=== PATIENT | male | born 1965 | race Two or more races ===

== ENCOUNTER 2024-07-21 17:27 | Inpatient (IN) | payer MEDICARE, MEDICAID, SELFPAY ==
[2024-07-21 17:36] VITALS: BP 118/72; PULSE 94; RESP 18; TEMP 37.2; O2SAT 95
--- NOTE | 2024-07-21 18:01 | XR_ITS ---
Examination: Foot, right, 3 views Technique: AP, oblique, lateral views foot, 3 views Date and time of exam: Comparison June 13, 2009 INDICATIONS: Right foot discoloration redness and pain this week FINDINGS: Periosteal new bone along the entire shaft of the fifth metatarsal Air in the soft tissue and soft tissue swelling about the fifth metatarsophalangeal joint Erosion on the oblique view distal fifth metacarpal, also suspicious for erosion base proximal phalanx fifth digit Amputation second digit No fracture IMPRESSION: Osteomyelitis fifth metatarsal, suspicious for early osteomyelitis base proximal phalanx of fifth digit Consider elective MRI foot without contrast follow-up
--- NOTE | 2024-07-21 18:02 | PD.EDRME ---
Rapid Medical Screening Exam RME Arrival date/time: 07/21/24 17:27 59-year-old male presents to the emergency department today for complaint of diabetic foot ulcer patient reports swelling and infection ongoing for the last few days Chief Complaint: Skin/Abscess/Foreign Body Vital signs: Vital Signs Temperature 98.9 F 07/21/24 17:36 Pulse Rate 94 07/21/24 17:36 Respiratory Rate 18 07/21/24 17:36 Blood Pressure 118/72 07/21/24 17:36 Pulse Oximetry (%) 95 07/21/24 17:36 Oxygen Delivery Method Room Air 07/21/24 17:36
[2024-07-21 18:37] LABS: Basophils % (Auto) 0 % (0-2.5); Eosinophils # (Auto) 0.1 Thou/mm3 (0.0-0.5); Eosinophils % (Auto) 1 % (0-10); Hematocrit 29.9 % (41.0-53.0); Immature Granulocytes % (Auto) 0 % (0-0); Immature Granulocytes Auto 0.04 Thou/mm3 (0.00-0.00); Lactate (Lactic Acid) 1.2 mMol/L (0.4-2.0); Lymphocytes # (Auto) 1.1 Thou/mm3 (1.0-4.8); Lymphocytes % (Auto) 9 % (10-50); Mean Corpuscular HGB Conc 36.8 g/dl (31.0-37.0); Mean Corpuscular Hemoglobin 33.4 pg (25.0-35.0); Mean Corpuscular Volume 91 fL (80-100); Monocytes # (Auto) 1.2 Thou/mm3 (0.0-0.8); Monocytes % (Auto) 9 % (0-12); Neutrophils # (Auto) 10.7 Thou/mm3 (1.8-7.7); Neutrophils % (Auto) 81 % (37-80); Nucleated Red Blood Cell % 0 /100 WBC (0); Platelet Count 201 Thou/mm3 (140-440); RDW Standard Deviation 38.5 fL (35.1-43.9); Red Blood Count 3.29 Miln/mm3 (4.50-5.90); White Blood Count 13.3 Thou/mm3 (3.8-10.6)
[2024-07-21 18:48] LABS: Glucose Estimated Average 134 mg/dL (80-131); Hemoglobin A1C 6.3 % Hgb (4.8-6.0)
[2024-07-21 18:56] LABS: Sed Rate (ESR) 62 mm/hr (0-20)
[2024-07-21 18:57] LABS: INR 1.1 (0.9-1.3); Partial Thromboplastin Time 30.8 Seconds (22.0-36.0); Prothrombin Time 11.5 Seconds (9.0-12.2)
[2024-07-21 19:11] LABS: Alanine Aminotransferase 17 U/L (10-49); Albumin, Serum 4.2 gm/dL (3.5-5.0); Albumin/Globulin Ratio 1.4 (1.2-2.2); Alkaline Phosphatase 87 U/L (46-116); Anion Gap 9 (7-16); BUN/Creatinine Ratio 17 Ratio (12-20); Blood Urea Nitrogen 31 mg/dL (9-23); C-Reactive Protein 20.2 mg/dL (0.0-0.9); Calcium 9.5 mg/dL (8.3-10.6); Calcium (Corrected) 9.5 mg/dL (8.5-10.1); Carbon Dioxide 25.2 mMol/L (20.0-31.0); Chloride 104 mMol/L (98-107); Creatinine (Component) 1.8 mg/dL (0.6-1.3); Glucose 318 mg/dL (74-106); Osmolality,Calculated 294 (275-295); Potassium 5.1 mMol/L (3.4-5.1); Sodium 138 mMol/L (136-145); Total Protein 7.2 gm/dL (5.7-8.2); eGFR 43 See Note
--- NOTE | 2024-07-21 20:30 | PD.EDSKIN ---
ED Skin Abcess FB-RME/HPI General Chief complaint: Skin/Abscess/Foreign Body Stated complaint: FEVER, PAIN/SWELLING/DISCOLORATION TO RIGHT FOOT Time Seen by Provider: 07/21/24 18:34 Arrival date/time: 07/21/24 17:27 This is a 59-year-old male that comes in with complaints of fever, pain, swelling, discoloration to the right outer foot next to the fifth digit. Patient states that the wound started approximately 3 days ago was very small and its progressed every day a lot more. Patient sees a slumber room attendant at the [facility] and they told him to come to the emergency room. RME / HPI RME / HPI narrative: 07/21/24 17:27 59-year-old male presents to the emergency department today for complaint of diabetic foot ulcer patient reports swelling and infection ongoing for the last few days Related Data Home Medications ?Medication ?Instructions ?Recorded ?Confirmed lisinopril 10 mg tablet 10 mg PO DAILY 07/21/24 07/21/24 Previous Rx's ?Medication ?Instructions ?Recorded metformin 1,000 mg tablet 1,000 mg PO BID #60 tabs 07/24/24 Allergies Allergy/AdvReac Type Severity Reaction Status Date / Time No Known Allergies Allergy Verified 05/19/23 01:31 Review of Systems Review of Systems Systems Reviewed: All systems reviewed, normal except as documented Past Medical History Surgical History OTHER SURGICAL HX: Right second toe amputation Social History SMOKING STATUS: Former smoker SUBSTANCE USE: does not use ALCOHOL: Former ED Exam Narrative Physical exam: VITAL SIGNS: Reviewed. GENERAL APPEARANCE: Alert and interactive, follows commands, no acute distress, HEAD AND FACE: Non-traumatic. ENT: PERRL, conjuctiva pink and clear, eyelid no trauma, Mucous membrane moist. NECK: Supple, nontender, no nuchal rigidity. CHEST: No tenderness, no crepitus, no paradoxical movement, no retractions. LUNGS: Clear, well ventilated, symmetric, no rales, no wheezing, no rhonchi, no stridor, good breath sounds bilaterally. HEART: Regular rate, regular rhythm, no murmur, no gallops. ABDOMEN: Soft, nondistended, no guarding, nontender NEUROLOGICAL: Gross motor function intact sensory function intact, Appropriate for age. MUSCULOSKELETAL: low back nontender, full range of motion. EXTREMITIES:discoloration to the right outer foot next to the fifth digit Distal neurovascular status intact bilateral foot SKIN: Color pink, dry, no rash, no lacerations, no abrasions, no contusions. Course Quality Measures none Orders Category Date Time Status Patient Condition Routine Admission 07/21/24 21:[address] in Observation Status Routine Admission 07/21/24 21:19 Active Bedside Blood Glucose ACHS Care 07/22/24 11:14 Completed Bedside Blood Glucose Q6HR Care 07/21/24 21:21 Completed Bedside COVID-19 Antigen Test NOW Care 07/21/24 22:06 Completed COVID-19 Screening Questionnaire NOW Care 07/21/24 21:17 Completed Decision to Admit X1 Care 07/21/24 21:17 Completed Miscellaneous Nursing Order NOW Care 07/21/24 21:58 Completed NPO after Midnight ONCE Care 07/21/24 21:23 Completed Notify provider NEEDED Care 07/21/24 21:19 Completed Nurse Swallow Screen X1 Care 07/21/24 21:58 Completed Sequential Compression Device QSHIFT Care 07/21/24 21:21 Completed Wound Care [Wound Care] BID Care 07/22/24 09:33 Completed Consult to General Surgery Routine Cons 07/21/24 21:34 Ordered Consult to Infectious Diseases Routine Cons 07/22/24 10:21 Ordered Diabetic [Diet Carbohydrate Consistent] Diet 07/22/24 Lunch Active Diet NPO after Midnight Diet 07/22/24 00:01 Completed XR foot comp RT min 3V Stat Exams 07/21/24 18:01 Completed A1C [Glycohemoglobin w (eAG)] Stat Lab 07/21/24 18:15 Completed Blood Culture (Lab) Stat Lab 07/21/24 18:15 Completed C-Reactive Protein Routine Lab 07/22/24 05:40 Completed CBC AM DRAW Lab 07/22/24 05:40 Completed CBC AM DRAW Lab 07/23/24 04:41 Completed CBC AM DRAW Lab 07/24/24 04:23 Completed CBC Stat Lab 07/21/24 18:15 Completed CMP [Comprehensive Metabolic Panel] Stat Lab 07/21/24 18:15 Completed CRP [C-Reactive Protein] Stat Lab 07/21/24 18:15 Completed Comprehensive Metabolic Panel AM DRAW Lab 07/22/24 05:40 Completed Comprehensive Metabolic Panel AM DRAW Lab 07/23/24 04:41 Completed Comprehensive Metabolic Panel AM DRAW Lab 07/24/24 04:23 Completed ESR [Sed Rate (ESR)] AM DRAW Lab 07/23/24 04:41 Completed ESR [Sed Rate (ESR)] Stat Lab 07/21/24 18:15 Completed Lactic Acid [Lactate (Lactic Acid)] Routine Lab 07/22/24 05:40 Completed Lactic Acid [Lactate (Lactic Acid)] Stat Lab 07/21/24 18:15 Completed Magnesium AM DRAW Lab 07/22/24 05:40 Completed Magnesium AM DRAW Lab 07/23/24 04:41 Completed Magnesium AM DRAW Lab 07/24/24 04:23 Completed PT [Prothrombin Time with INR] Stat Lab 07/21/24 18:15 Completed PTT [Partial Thromboplastin Time] Stat Lab 07/21/24 18:15 Completed Potassium Routine Lab 07/21/24 21:41 Completed Procalcitonin Stat Lab 07/21/24 18:15 Completed Sed Rate (ESR) Routine Lab 07/22/24 05:40 Completed Acetaminophen Tab [Tylenol Tab] Med 07/21/24 21:21 Discontinued 650 mg PO Q6H PRN Acetaminophen Tab [Tylenol Tab] Med 07/22/24 11:24 Discontinued 650 mg PO Q6H PRN Ascorbic Acid [Vitamin C] Med 07/22/24 09:45 Discontinued 500 mg PO BID Cefepime Inj [Maxipime Inj] 2 gm Med 07/22/24 09:00 Discontinued SODIUM CHLORIDE 0.9% (Popper) [Ns 0.9% (P)] 50 ml IV Q12HR Cefepime Inj [Maxipime Inj] 2 gm Med 07/21/24 21:34 Discontinued SODIUM CHLORIDE 0.9% (Popper) [Ns 0.9% (P)] 50 ml IV Q8HR Cefepime Inj [Maxipime Inj] 2 gm Med 07/21/24 21:45 Discontinued SODIUM CHLORIDE 0.9% (Popper) [Ns 0.9% (P)] 50 ml IV X1 Dextrose 50% Syr [D50w Syringe Abboject] Med 07/21/24 21:21 Discontinued 25 ml IV Q15MIN PRN Dextrose 50% Syr [D50w Syringe Abboject] Med 07/22/24 11:14 Discontinued 25 ml IV Q15MIN PRN Dextrose 50% Syr [D50w Syringe Abboject] Med 07/21/24 21:21 Discontinued 50 ml IV Q15MIN PRN Dextrose 50% Syr [D50w Syringe Abboject] Med 07/22/24 11:14 Discontinued 50 ml IV Q15MIN PRN Doxycycline Inj [Vibramycin Inj] 100 mg Med 07/22/24 21:00 Discontinued Sodium Chloride 0.9% (Pop) [NS 0.9% mini bag] 100 ml IV BID Glucagon Inj Med 07/21/24 21:21 Discontinued 1 mg IM Q15MIN PRN Glucagon Inj Med 07/22/24 11:14 Discontinued 1 mg IM Q15MIN PRN HYDROcodone*/APAP 5/325 [[place] 5/325] Med 07/21/24 21:21 Discontinued 1 tab PO Q4HR PRN INSULIN LISPRO (AdmeLOG) [HumaLOG] Med 07/22/24 11:30 Discontinued See Protocol SC ACHS INSULIN LISPRO (AdmeLOG) [HumaLOG] Med 07/21/24 21:30 Discontinued See Protocol SC Q6H Lisinopril [Prinivil] Med 07/22/24 11:15 Discontinued 10 mg PO DAILY Magnesium Sulfate 4 GM Ivpb [Magnesium Sulfate Ivpb] Med 07/22/24 07:52 Discontinued 4 gm in 50 ml IV X1 Ondansetron Inj [Zofran Inj] Med 07/21/24 21:21 Discontinued 4 mg IVP Q6H PRN Pharmacy to Consult Patient Med 07/21/24 21:34 Discontinued 1 each XX PRN PRN Piper/Tazo 3.375 gm Premix [Zosyn] Med 07/21/24 20:57 Discontinued 3.375 gm in 50 ml IV X1 Piper/Tazo Inj [Zosyn Inj] 4.5 gm Med 07/22/24 06:00 Discontinued Sodium Chloride 0.9% (Pop) [NS 0.9% mini bag] 100 ml IV Q8HR Sod Hypochlorite 02/17 Str [Dakin's 02/17 Str] Med 07/23/24 09:00 Discontinued 473 ml IRRIG QDAY Sodium Chloride 0.9% 1000 ml [Ns] 1,000 ml Med 07/21/24 20:57 Discontinued IV 999 mls/hr TET,DIP/PERT AC (Adult)-Tdap [Boostrix Adult (Tdap) Med 07/22/24 11:14 Discontinued Vacc] 0.5 ml IMI .ONCE ONE Vancomycin Inj 1,000 mg Med 07/21/24 20:57 Discontinued Sodium Chloride 0.9% 250 ml [Ns] 250 ml IV X1 Vancomycin Pharmacy to Dose Med 07/22/24 09:00 Discontinued 1 each IV QDAY Vancomycin/Ns 750 mg Ivpb Med 07/22/24 10:00 Discontinued 750 mg in 150 ml IV Q12H Zinc Sulfate Med 07/22/24 09:45 Discontinued 220 mg PO QDAY Code Status Routine Oth 07/21/24 21:19 Completed Oxygen Delivery PRN RT 07/21/24 21:19 Completed Vital Signs Vital signs: Vital Signs Temperature 98.9 F 07/21/24 17:36 Pulse Rate 94 07/21/24 17:36 Respiratory Rate 18 07/21/24 17:36 Blood Pressure 118/72 07/21/24 17:36 Pulse Oximetry (%) 95 07/21/24 17:36 Oxygen Delivery Method Room Air 07/21/24 17:36 Skin / Abscess / Foreign Body MDM Narrative MDM Narrative:: foot x ray: FINDINGS: Periosteal new bone along the entire shaft of the fifth metatarsal Air in the soft tissue and soft tissue swelling about the fifth metatarsophalangeal joint Erosion on the oblique view distal fifth metacarpal, also suspicious for erosion base proximal phalanx fifth digit Amputation second digit No fracture IMPRESSION: Osteomyelitis fifth metatarsal, suspicious for early osteomyelitis base proximal phalanx of fifth digit Consider elective MRI foot without contrast follow-up Labs reviewed white count is 13.3 hemoglobin and hematocrit are 11 and 29.9, platelet count is 209, neutrophils 81. ESR of 62. PT INR unremarkable. BMP shows a BUN of 31 and a creatinine of 1.8. CRP is 20.2. Spoke to hospitalist team Dr. Ortiz who agreed to admit patient. Patient was given Zosyn and vancomycin. Patient also given a liter of fluid. Patient data External records reviewed:: [facility] previous records Clinical information provided by:: patient Social determinants that could affect healthcare access:: none Patient has the following chronic illnesses:: See HPI How is presenting disease/condition affected by chronic disease/condition?: exacerbated by Evaluation data The following diagnostics were reviewed and interpreted by me:: lab results and radiology exam(s) Lab and/or radiology exams considered but not ordered:: None Interpretation Summary: See note Medications / Prescriptions Medications or Prescriptions considered but not ordered:: None Medication administrations:: Medication Administration History Discontinued Medications Acetaminophen (Acetaminophen 325 Mg Tablet) 650 mg PO Q6H PRN PRN Reason: pain and Fever >100.4 Stop: 08/20/24 21:20 Last Admin: 07/21/24 23:59 Dose: 650 mg Documented By: FLAVIA Acetaminophen (Acetaminophen 325 Mg Tablet) 650 mg PO Q6H PRN PRN Reason: pain and Fever >100.4 Stop: 08/20/24 21:20 Hydrocodone Bitart/Acetaminophen (Hydrocodone/Apap 5/325 Tablet) 1 tab PO Q4HR PRN PRN Reason: PAIN SCALE 4-6 (Moderate Stop: 07/26/24 21:20 Last Admin: 07/23/24 21:06 Dose: 1 tab Documented By: Admin: 07/23/24 08:26 Dose: 1 tab Documented By: Admin: 07/22/24 14:15 Dose: 1 tab Documented By: Admin: 07/22/24 08:30 Dose: 1 tab Documented By: Ascorbic Acid (Ascorbic Acid 250 Mg Tablet) 500 mg PO BID ANGELA Stop: 08/21/24 09:44 Last Admin: 07/25/24 09:14 Dose: 500 mg Documented By: Admin: 07/24/24 21:22 Dose: 500 mg Documented By: Admin: 07/24/24 09:17 Dose: 500 mg Documented By: Admin: 07/23/24 20:45 Dose: 500 mg Documented By: Admin: 07/23/24 08:16 Dose: 500 mg Documented By: Admin: 07/22/24 21:22 Dose: 500 mg Documented By: Admin: 07/22/24 09:49 Dose: 500 mg Documented By: Dextrose (Dextrose 50%-Water Inj 50 Ml Syringe) 25 ml IV Q15MIN PRN PRN Reason: BG 50-70 responsive npo pt Stop: 08/20/24 21:20 Dextrose (Dextrose 50%-Water Inj 50 Ml Syringe) 50 ml IV Q15MIN PRN PRN Reason: BG <50 OR BG <70 & pt unresponsive Stop: 08/20/24 21:20 Dextrose (Dextrose 50%-Water Inj 50 Ml Syringe) 25 ml IV Q15MIN PRN PRN Reason: BG 50-70 responsive npo pt Stop: 08/21/24 11:13 Dextrose (Dextrose 50%-Water Inj 50 Ml Syringe) 50 ml IV Q15MIN PRN PRN Reason: BG <50 OR BG <70 & pt unresponsive Stop: 08/21/24 11:13 Diphtheria/Tetanus/Acell Pertussis (Diphth,Pertuss(Acell),Tet Vac 0.5 Ml Syr- Adult) 0.5 ml IMi .ONCE ONE Stop: 07/22/24 11:15 Last Admin: 07/22/24 13:55 Dose: 0.5 ml Documented By: Doxycycline Hyclate (Doxycycline 100 Mg Tablet) 100 mg PO BID ANGELA Stop: 07/30/24 20:59 Last Admin: 07/25/24 09:15 Dose: 100 mg Documented By: Admin: 07/24/24 21:22 Dose: 100 mg Documented By: Admin: 07/24/24 13:12 Dose: 100 mg Documented By: Admin: 07/23/24 20:45 Dose: 100 mg Documented By: PIPPA Glucagon (Glucagon Inj 1 Mg Vial) 1 mg IM Q15MIN PRN PRN Reason: BG <70, and no IV access Glucagon (Glucagon Inj 1 Mg Vial) 1 mg IM Q15MIN PRN PRN Reason: BG <70, and no IV access Heparin Sodium (Beef Lung) (Heparin Sod Lock Syr 100 Unit/Ml) Confirm Administered Dose 500 unit .ROUTE .STK-MED ONE Stop: 07/24/24 12:14 Last Admin: 07/24/24 12:25 Dose: Not Given Documented By: EG Non-Admin Reason: Duplicate Medication on eMAR Heparin Sodium (Beef Lung) (Heparin Sod Lock Syr 100 Unit/Ml) 500 unit IV X1 ONE Stop: 07/24/24 12:31 Last Admin: 07/24/24 12:30 Dose: 500 unit Documented By: KATHY Comments: to sterile field Heparin Sodium (Porcine) (Heparin Sod Inj 5000 Unit/Ml Vial) 5,000 unit SC Q8HR ANGELA Stop: 08/05/24 13:59 Last Admin: 07/25/24 05:17 Dose: 5,000 unit Documented By: FLAVIA Co-signed By: ROSAMARIA Admin: 07/24/24 21:19 Dose: 5,000 unit Documented By: FLAVIA Co-signed By: RAY Admin: 07/24/24 15:01 Dose: 5,000 unit Documented By: OLIVIA Co-signed By: CB Admin: 07/24/24 05:34 Dose: 5,000 unit Documented By: PIPPA Co-signed By: JOHANNA Admin: 07/23/24 21:07 Dose: 5,000 unit Documented By: HV Co-signed By: FF Admin: 07/23/24 15:04 Dose: 5,000 unit Documented By: OLIVIA Co-signed By: BRET Admin: 07/23/24 05:24 Dose: 5,000 unit Documented By: FLAVIA Co-signed By: CTF Admin: 07/22/24 21:27 Dose: 5,000 unit Documented By: FLAVIA Co-signed By: AAA Admin: 07/22/24 13:43 Dose: 5,000 unit Documented By: Co-signed By: JANET Vancomycin HCl 1,000 mg/ (Sodium Chloride) 250 mls @ 150 mls/hr IV X1 ONE Stop: 07/21/24 22:36 Last Admin: 07/21/24 22:39 Dose: 150 mls/hr Documented By: CCT Piperacillin/Tazobactam/Dextrose (Zosyn) 3.375 gm in 50 mls @ 100 mls/hr IV X1 ONE Stop: 07/21/24 21:26 Last Infusion: 07/21/24 21:45 Dose: Infused Documented By: Admin: 07/21/24 21:10 Dose: 100 mls/hr Documented By: CCT Sodium Chloride (Ns) 1,000 mls @ 999 mls/hr IV .Q1H1M ONE Stop: 07/21/24 21:57 Last Infusion: 07/21/24 22:10 Dose: Infused Documented By: Admin: 07/21/24 21:10 Dose: 999 mls/hr Documented By: CCT Piperacillin Sod/Tazobactam (Sod 4.5 gm/ Sodium Chloride) 100 mls @ 200 mls/hr IV Q8HR ANGELA Stop: 07/29/24 05:59 Cefepime HCl 2 gm/ Sodium (Chloride) 50 mls @ 100 mls/hr IV Q8HR ANGELA Stop: 07/28/24 21:33 Last Admin: 07/21/24 22:48 Dose: Not Given Documented By: CCT Non-Admin Reason: Duplicate Medication on eMAR Admin: 07/21/24 22:48 Dose: Not Given Documented By: CCT Non-Admin Reason: Cancelled by Provider Cefepime HCl 2 gm/ Sodium (Chloride) 50 mls @ 100 mls/hr IV X1 ONE Stop: 07/21/24 22:14 Last Infusion: 07/21/24 22:35 Dose: Infused Documented By: Admin: 07/21/24 22:03 Dose: 100 mls/hr Documented By: PHAM Cefepime HCl 2 gm/ Sodium (Chloride) 50 mls @ 100 mls/hr IV Q12HR ANGELA Stop: 07/29/24 08:59 Last Admin: 07/23/24 08:16 Dose: 100 mls/hr Documented By: Infusion: 07/22/24 21:52 Dose: Infused Documented By: Admin: 07/22/24 21:22 Dose: 100 mls/hr Documented By: Infusion: 07/22/24 09:47 Dose: Infused Documented By: Admin: 07/22/24 09:17 Dose: 100 mls/hr Documented By: Magnesium Sulfate (Magnesium Sulfate Ivpb) 4 gm in 50 mls @ 12.5 mls/hr IV X1 ONE Stop: 07/22/24 11:51 Last Admin: 07/22/24 08:30 Dose: 12.5 mls/hr Documented By: MR Vancomycin/Sodium Chloride (Vancomycin/Ns 750 Mg Ivpb) 750 mg in 150 mls @ 120 mls/hr IV Q12H ANGELA; Protocol Stop: 07/29/24 09:59 Last Admin: 07/22/24 09:49 Dose: 120 mls/hr Documented By: MR Doxycycline Hyclate 100 mg/ (Sodium Chloride) 100 mls @ 100 mls/hr IV BID ANGELA Stop: 07/29/24 20:59 Last Admin: 07/23/24 10:43 Dose: 100 mls/hr Documented By: Infusion: 07/22/24 22:21 Dose: Infused Documented By: Admin: 07/22/24 21:21 Dose: 100 mls/hr Documented By: FLAVIA Sodium Chloride (Ns) 1,000 mls @ 80 mls/hr IV .[id number] ANGELA Stop: 07/23/24 01:59 Last Admin: 07/22/24 13:42 Dose: 80 mls/hr Documented By: Sodium Chloride (Ns) 1,000 mls @ 125 mls/hr IV .Q8H ANGELA Stop: 08/22/24 07:29 Last Admin: 07/24/24 05:33 Dose: 125 mls/hr Documented By: Infusion: 07/24/24 04:42 Dose: Infused Documented By: Admin: 07/23/24 20:42 Dose: 125 mls/hr Documented By: Infusion: 07/23/24 18:28 Dose: Infused Documented By: Admin: 07/23/24 08:19 Dose: 125 mls/hr Documented By: OLIVIA Ceftriaxone Sodium 2 gm/ (Sodium Chloride) 50 mls @ 100 mls/hr IV QDAY ANGELA Stop: 07/30/24 12:51 Last Admin: 07/24/24 09:17 Dose: 100 mls/hr Documented By: Infusion: 07/23/24 14:11 Dose: Infused Documented By: Admin: 07/23/24 13:41 Dose: 100 mls/hr Documented By: OLIVIA Ceftriaxone Sodium/Dextrose (Rocephin/D5w 2gm) 2 gm in 50 mls @ 100 mls/hr IV QDAY ANGELA Stop: 07/30/24 12:51 Last Admin: 07/25/24 09:13 Dose: 100 mls/hr Documented By: MARQUES Magnesium Sulfate (Magnesium Sulfate Ivpb) 4 gm in 50 mls @ 12.5 mls/hr IV X1 ONE Stop: 07/24/24 17:55 Last Admin: 07/24/24 15:01 Dose: 12.5 mls/hr Documented By: OLIVIA Magnesium Sulfate (Magnesium Sulfate Ivpb) 2 gm in 50 mls @ 25 mls/hr IV X1 ONE Stop: 07/24/24 19:55 Last Admin: 07/24/24 19:17 Dose: 25 mls/hr Documented By: FLAVIA Insulin Glargine (Insulin Glargine (Lantus) 5 Unit/0.05 Ml (Per 5 Units)) 8 unit SC [facility] Stop: 08/22/24 20:59 Insulin Glargine (Insulin Glargine (Lantus) 5 Unit/0.05 Ml (Per 5 Units)) 4 unit SC [facility] Stop: 08/22/24 20:59 Last Admin: 07/24/24 21:16 Dose: 4 unit Documented By: FLAVIA Co-signed By: RAY Admin: 07/23/24 21:35 Dose: 4 unit Documented By: PIPPA Co-signed By: FF Insulin Human Lispro (Insulin Lispro (Admelog) 1 Unit/0.01 Ml Unit) 0 unit SC Q6H ANGELA; Protocol Stop: 08/20/24 21:29 Last Admin: 07/22/24 09:12 Dose: Not Given Documented By: Non-Admin Reason: NPO Admin: 07/22/24 03:49 Dose: Not Given Documented By: FLAVIA Non-Admin Reason: NPO Admin: 07/21/24 22:27 Dose: 3 unit Documented By: CCT Co-signed By: AC Insulin Human Lispro (Insulin Lispro (Admelog) 1 Unit/0.01 Ml Unit) 0 unit SC ACHS ANGELA; Protocol Stop: 08/21/24 11:29 Last Admin: 07/25/24 11:53 Dose: 4 unit Documented By: MARQUES Co-signed By: BRET Admin: 07/25/24 07:56 Dose: 3 unit Documented By: MARQUES Co-signed By: BRET Admin: 07/24/24 21:16 Dose: 3 unit Documented By: FLAVIA Co-signed By: RAY Admin: 07/24/24 18:14 Dose: 3 unit Documented By: OLIVIA Co-signed By: YM Admin: 07/24/24 13:12 Dose: 3 unit Documented By: LH Co-signed By: YM Admin: 07/24/24 09:17 Dose: 2 unit Documented By: LH Co-signed By: JRR Admin: 07/23/24 22:06 Dose: 4 unit Documented By: PIPPA Co-signed By: FF Admin: 07/23/24 18:09 Dose: 2 unit Documented By: LH Co-signed By: CB Admin: 07/23/24 12:52 Dose: 2 unit Documented By: OLIVIA Co-signed By: BRET Admin: 07/23/24 08:17 Dose: 2 unit Documented By: OLIVIA Co-signed By: DEL Admin: 07/22/24 21:26 Dose: 2 unit Documented By: FLAVIA Co-signed By: KENNEY Admin: 07/22/24 17:24 Dose: 2 unit Documented By: Co-signed By: MARQUES(2) Admin: 07/22/24 11:31 Dose: 2 unit Documented By: Co-signed By: CHEEM1 Insulin Human Lispro (Insulin Lispro (Admelog) 1 Unit/0.01 Ml Unit) 2 unit SC X1 ONE Stop: 07/24/24 00:18 Last Admin: 07/24/24 00:35 Dose: 2 unit Documented By: PIPPA Co-signed By: JOHANNA Lidocaine HCl (Lidocaine Inj Pf 1% 30 Ml Vial) Confirm Administered Dose 30 ml .ROUTE .STK-MED ONE Stop: 07/24/24 12:14 Last Admin: 07/24/24 12:25 Dose: Not Given Documented By: KATHY Non-Admin Reason: Duplicate Medication on eMAR Lidocaine HCl (Lidocaine Inj Pf 1% 30 Ml Vial) 3 ml INFL X1 ONE Stop: 07/24/24 12:31 Last Admin: 07/24/24 12:31 Dose: 3 ml Documented By: KATHY Comments: administered by dr. jay to sterile field Lisinopril (Lisinopril 2.5 Mg Tablet) 10 mg PO DAILY [facility] Stop: 08/21/24 11:14 Last Admin: 07/25/24 09:14 Dose: 10 mg Documented By: Admin: 07/24/24 09:16 Dose: 10 mg Documented By: Admin: 07/23/24 08:16 Dose: 10 mg Documented By: Admin: 07/22/24 11:32 Dose: 10 mg Documented By: Ondansetron HCl (Ondansetron Inj 2 Mg/Ml Inj 2 Ml) 4 mg IVP Q6H PRN; Protocol PRN Reason: NAUSEA OR VOMITING Stop: 08/20/24 21:20 Last Admin: 07/22/24 08:30 Dose: 4 mg Documented By: Pharmacy Consult (Vancomycin Pharmacy To Dose 1 Each Each) 1 each IV QDAY [facility] Stop: 08/21/24 08:59 Pharmacy Consult (Pharmacy To Consult Patient) 1 each XX PRN PRN PRN Reason: CONSULT Stop: 08/20/24 21:33 Sodium Hypochlorite (Sod Hypochlorite 1/4 Str 473 Ml Btl) 473 ml IRRIG QDAY [facility] Stop: 08/22/24 08:59 Last Admin: 07/23/24 12:53 Dose: 1 applicatio Documented By: OLIVIA Sodium Hypochlorite (Sod Hypochlorite 1/4 Str 473 Ml Btl) 473 ml IRRIG BID [facility] Stop: 08/22/24 15:14 Sodium Hypochlorite (Sod Hypochlorite / Str 473 Ml Btl) 473 ml TOP BID ANGELA Stop: 08/22/24 20:59 Last Admin: 07/25/24 09:15 Dose: 1 applicatio Documented By: Admin: 07/24/24 21:23 Dose: 1 applicatio Documented By: Admin: 07/24/24 13:11 Dose: 1 applicatio Documented By: Admin: 07/23/24 20:45 Dose: 1 applicatio Documented By: PIPPA Zinc Sulfate (Zinc Sulfate 220 Mg Capsule) 220 mg PO QDAY ANGELA Stop: 08/21/24 09:44 Last Admin: 07/25/24 09:14 Dose: 220 mg Documented By: Admin: 07/24/24 09:17 Dose: 220 mg Documented By: Admin: 07/23/24 08:16 Dose: 220 mg Documented By: Admin: 07/22/24 09:49 Dose: 220 mg Documented By: MR Gomez MCKINNEY Consultations Consultation(s) initiated? (list below): No Diagnosis Skin/Abscess Differential Diagnosis: abscess of skin or subcutaneous tissue, cellulitis and other (Osteomyelitis) Most likely diagnosis given after review of the tests above:: Osteomyelitis cellulitis Admission Indicated Admission indicated?: indicated Admission Request Was there a request for admission?: Yes Admission Attestation Admission request attestation: Discussed case with [] from Hospitalist service regarding admission. Discussed patients ED course, exam findings, labs, and radiology results. The Hospitalist [agrees,declines] to accept the patient for admission. Disposition Plan Disposition Plan: Admit Discharge Plan Plan Patient Disposition: Admit Acute Care w/in Hospital Patient condition on transfer: Stable Problem List Clinical Impression: Osteomyelitis, Cellulitis PA/ANGEL Supervising Physician JUSTIN/ANGEL Supervising Physician: bartolo
[2024-07-21 20:49] VITALS: BP 150/95; PULSE 100; RESP 18; TEMP 37.6; O2SAT 96
[2024-07-21] MEDS: SODIUM CHLORIDE 0.9% 1000 ML 1,000 ML 999 ML IV (21:10)
[2024-07-21] MEDS: PIPER/TAZO 3.375 GM PREMIX 3.375 GM/50 ML BAG IV (21:10)
--- NOTE | 2024-07-21 21:26 | PD.RESHP ---
Documentation for date of: 07/21/24 HPI History of Present Illness Chief complaint: R foot pain and swelling History of present illness: 59-year-old male with past medical history of DM2 and hypertension was admitted to the hospital on 07/21/2024 after come to the ED with complaints of right foot swelling accompanied with subjective fevers and chills. Patient stated that the symptoms started around 2 or 3 days ago. 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 Patient states that he did not have any trauma to the foot or nothing punctured his foot. He does state that he has very dry skin and that likely from his foot were that he could have had a rupture in his skin and then progressed to swelling erythema at the edges and then started having skin discoloration around 4 to 5 cm in diameter. He stated that he also has chills and some fevers at home, but otherwise he had no other complaints at this time. He states that it is tender to touch. He normally walks with a cane. He did have amputation of the second toe on that same foot and around 2 years ago he also had debridement of the lesion on his left foot that was also necrotic likely in the setting of another similar lesion as 2 days. Otherwise he has no new complaints and he did not go see a primary care physician as an outpatient. ED course: Initially came in afebrile and normotensive. Initial labs were relevant for leukocytosis, elevated ESR at 62, GINNY, hyperglycemia, and elevated CRP at 20.2. Initial imaging included foot x-ray which showed suspicion for early osteomyelitis of the fifth digit. PMH: As above Social Hx: Denies any current smoking, drugs, or alcohol Surgical Hx: Right second toe amputation and left foot lesion debridement Allergies: NKDA Medications: Metformin Review of Systems Review of Systems Narrative Review of Systems: Constitutional: Denies sweats, Denies weight loss/gain, Admits fever, Admits chills. HEENT: Denies hearing loss, Denies ear pain, Denies postnasal drip, Denies double vision, Denies blurry vision. Respiratory: Denies shortness of breath, Denies cough, Denies wheezing. Cardiovascular: Denies chest pain, Denies palpitations, Denies sudden loss of consciousness. GI: Denies blood in stool, Denies constipation, Denies abdominal pain, Denies difficulty swallowing, Denies nausea or vomit. : Denies urinary incontinence, Denies pain while urinating, Denies increased urinary frequency. MSK: Admits joint pain, admits joint swelling, Denies numbness. Skin: Denies rash, Denies itching, Denies easy bruising. Neuro: Denies headaches, Denies dizziness, Denies seizures. Past Medical History Past Medical History Comments PMH COMMENT: PMH: DM2 and HTN Social Hx: Denies any current smoking, drugs, or alcohol Surgical Hx: Right second toe amputation and left foot lesion debridement Allergies: NKDA Medications: Metformin Exam Vital Signs Temp Pulse Resp BP Pulse Ox O2 Del Method 99.7 F 100 18 150/95 H 96 Room Air 07/21/24 20:49 07/21/24 20:49 07/21/24 20:49 07/21/24 20:49 07/21/24 20:49 07/21/24 20:49 Narrative Exam General: A/O x3, no acute distress Eyes: PERRL, EOMI. Anicteric, vision grossly intact. Ears: No ear pain, no ear discharge, Hearing grossly intact. Nose: No nasal discharge. Mouth/Throat: Moist mucous membranes, no redness, no lesions. Neck: Neck supple, non-tender, no cervical lymphadenopathy. Lungs: Clear MICKY to auscultation and percussion, No accessory muscle use. Cardio: Normal S1/S2, regular rhythm, no murmurs, no JVD Abdomen: Soft, non-tender, no palpable masses, peristalsis present, no guarding or rebound. Extremities: Symmetrical, no significant deformities, no peripheral edema , non-tender, peripheral pulses presents. Right foot lateral lesion besides the fifth toe with necrotic changes and is around 4 to 5 cm in diameter, but no discharge seen. Erythematous and tender to palpation Skin: No rashes, no lesions, warm to touch. Neuro: No focal neurological deficits. motor and sensory intact Psych: Cooperative, appropriate mood and effect. Results: Labs 07/22/24 05:40 07/21/24 21:41 Labs: Short CBC 07/21/24 Range/Units 18:15 WBC 13.3 H (3.8-10.6) Thou/mm3 Hgb 11.0 L (13.5-16.0) g/dL Hct 29.9 L (41.0-53.0) % Plt Count 201 (140-440) Thou/mm3 BMP 07/21/24 18:15 Sodium 138 Potassium 5.1 Chloride 104 Carbon Dioxide 25.2 BUN 31 H Creatinine 1.8 H Glucose 318 H Calcium 9.5 Liver Function 07/21/24 Range/Units 18:15 Total Bilirubin 1.0 (0.3-1.2) mg/dL ALT 17 (10-49) U/L Alkaline Phosphatase 87 (46-116) U/L Albumin 4.2 (3.5-5.0) gm/dL Quality Measures Quality Measures VTE prophylaxis Medications Home Medications and Allergies Home Medications ?Medication ?Instructions ?Recorded ?Confirmed ?Type lisinopril 10 mg tablet 10 mg PO DAILY 07/21/24 07/21/24 History metformin 1,000 mg tablet 1,000 mg PO DAILY 07/21/24 07/21/24 History Allergies Allergy/AdvReac Type Severity Reaction Status Date / Time No Known Allergies Allergy Verified 05/19/23 01:31 Visit Medications Acetaminophen (Acetaminophen 325 Mg Tablet) 650 mg PO Q6H PRN PRN Reason: pain and Fever >100.4 Stop: 08/20/24 21:20 Hydrocodone Bitart/Acetaminophen (Hydrocodone/Apap 5/325 Tablet) 1 tab PO Q4HR PRN PRN Reason: PAIN SCALE 4-6 (Moderate Stop: 07/26/24 21:20 Dextrose (Dextrose 50%-Water Inj 50 Ml Syringe) 25 ml IV Q15MIN PRN PRN Reason: BG 50-70 responsive npo pt Stop: 08/20/24 21:20 Dextrose (Dextrose 50%-Water Inj 50 Ml Syringe) 50 ml IV Q15MIN PRN PRN Reason: BG <50 OR BG <70 & pt unresponsive Stop: 08/20/24 21:20 Glucagon (Glucagon Inj 1 Mg Vial) 1 mg IM Q15MIN PRN PRN Reason: BG <70, and no IV access Vancomycin HCl 1,000 mg/ (Sodium Chloride) 250 mls @ 150 mls/hr IV X1 ONE Stop: 07/21/24 22:36 Sodium Chloride (Ns) 1,000 mls @ 999 mls/hr IV .Q1H1M ONE Stop: 07/21/24 21:57 Last Admin: 07/21/24 21:10 Dose: 999 mls/hr Ondansetron HCl (Ondansetron Inj 2 Mg/Ml Inj 2 Ml) 4 mg IVP Q6H PRN; Protocol PRN Reason: NAUSEA OR VOMITING Stop: 08/20/24 21:20 Discontinued Medications Piperacillin/Tazobactam/Dextrose (Zosyn) 3.375 gm in 50 mls @ 100 mls/hr IV X1 ONE Stop: 07/21/24 21:26 Last Admin: 07/21/24 21:10 Dose: 100 mls/hr Assessment & Plan Plan 59-year-old male with past medical history of DM2 and hypertension was admitted to the hospital on observation on 07/21/2024 for right foot cellulitis and possible right fifth toe osteomyelitis. #Right foot cellulitis #Possible right fifth toe osteomyelitis #Hx of DM2 Patient came in with complaints of swelling and pain and erythema in the right foot since 3 days ago Patient did have some leukocytosis at 13.3 with elevated inflammatory markers as ESR was 62 and CRP was 20.2. Patient's lesion does look with necrotic changes and his foot is swollen and tender to touch, but no discharge from wound. Patient does have a history of prior second toe amputation on the right foot and prior debridement of similar lesion on the left foot. X-ray of the right foot that showed possible osteomyelitis of the fifth digit Lactic acid procalcitonin were negative A1c today was 6.3 Plan: Start vancomycin and cefepime (07/21/2024?) Patient will likely need possible debridement versus possible amputation N.p.o. after midnight in the setting of possible debridement versus surgery ISS and hypoglycemia protocol ordered IV fluids General Surgery consulted, appreciate commendations #GINNY Patient getting recurrent of 1.8 from his baseline around 1.1 Could be prerenal likely secondary to poor oral intake versus possibly diabetic nephropathy Plan: IV fluids Avoid nephrotoxic agents Renally dose medications Will continue monitor # Normocytic normochromic anemia Patient came with hemoglobin of 11 Patient has been previously around 9-10 No active signs of bleeding Plan: Will continue to monitor #Hx of hypertension Patient has been normotensive since admission therefore we will hold off antihypertensive medications for now until medication reconciliation is done. Disposition: Patient admitted to med surg for possible osteomyelitis. Diet: NPO GI prophylaxis: not indicated DVT prophylaxis: SCDs Code: Full Case disclosed with Attending Dr. Estiven Doe PGY1 Disclaimer: Even though this this note was dictated by speech recognition and even though it was carefully revised there may still be minor errors in business continuity consultant due to voice recognition software. Attending Provider Attestation/Addendum I have examined the patient, reviewed labs and imaging findings, discussed the case with the resident(s), and reviewed entered orders. I agree with the plan of care as outlined in this note, with these additional summaries/recommendations: 59-year-old male with past medical history of hypertension, DM, Charcot foot presents to the ED with chief complaint of right lower extremity pain with fifth toe infection. Patient met up elevated inflammatory markers, leukocytosis and x-ray showed osteomyelitis of right fifth toe. He will be admitted for further management with IV antibiotics and possible debridement. Arnold Jean-Baptiste MD
[2024-07-21 22:02] LABS: Potassium 4.6 mMol/L (3.4-5.1)
[2024-07-21] MEDS: CEFEPIME INJ 2 GM in SODIUM CHLORIDE 0.9% (Popper) 50 ML IV (22:03)
[2024-07-21] MEDS: INSULIN LISPRO (AdmeLOG) 1 UNIT/0.01 ML UNIT SC (22:27)
[2024-07-21 22:33] VITALS: BP 154/85; PULSE 104; RESP 19; TEMP 37.6; O2SAT 95
[2024-07-21] MEDS: Vancomycin Inj 1,000 MG in SODIUM CHLORIDE 0.9% 250 ML 250 ML 150 MG IV (22:39)
--- NOTE | 2024-07-21 22:53 | PC.NURSE ---
Report given to Silvia Dominguez Med-surg
[2024-07-21 23:15] VITALS: BMI 37.0
--- NOTE | 2024-07-21 23:48 | PC.NURSE ---
okay to give water to pt per DR. Jean-Baptiste. Pt passed nurse swallow eval.
[2024-07-21] MEDS: ACETAMINOPHEN 325 MG TABLET 650 MG PO (23:59)
[2024-07-22] VITALS (10 sets, daily range): BP systolic 107–152; BP diastolic 68–97; PULSE 83–106; RESP 15–95; TEMP 36.3–37.8; O2SAT 91–97
[2024-07-22 05:49] LABS: Lactate (Lactic Acid) 0.7 mMol/L (0.4-2.0)
[2024-07-22 05:57] LABS: Basophils % (Auto) 0 % (0-2.5); Eosinophils # (Auto) 0.2 Thou/mm3 (0.0-0.5); Eosinophils % (Auto) 1 % (0-10); Hematocrit 28.5 % (41.0-53.0); Hemoglobin 10.2 g/dL (13.5-16.0); Immature Granulocytes % (Auto) 0 % (0-0); Immature Granulocytes Auto 0.04 Thou/mm3 (0.00-0.00); Lymphocytes # (Auto) 1.4 Thou/mm3 (1.0-4.8); Lymphocytes % (Auto) 11 % (10-50); Mean Corpuscular HGB Conc 35.8 g/dl (31.0-37.0); Mean Corpuscular Hemoglobin 33.6 pg (25.0-35.0); Mean Corpuscular Volume 94 fL (80-100); Monocytes # (Auto) 1.5 Thou/mm3 (0.0-0.8); Monocytes % (Auto) 12 % (0-12); Neutrophils # (Auto) 9.7 Thou/mm3 (1.8-7.7); Neutrophils % (Auto) 76 % (37-80); Nucleated Red Blood Cell % 0 /100 WBC (0); Platelet Count 181 Thou/mm3 (140-440); RDW Standard Deviation 39.7 fL (35.1-43.9); Red Blood Count 3.04 Miln/mm3 (4.50-5.90); White Blood Count 12.8 Thou/mm3 (3.8-10.6)
[2024-07-22 07:26] LABS: Alanine Aminotransferase 13 U/L (10-49); Albumin, Serum 3.8 gm/dL (3.5-5.0); Albumin/Globulin Ratio 1.4 (1.2-2.2); Alkaline Phosphatase 77 U/L (46-116); Anion Gap 9 (7-16); BUN/Creatinine Ratio 16 Ratio (12-20); Bilirubin,Total 1.1 mg/dL (0.3-1.2); Blood Urea Nitrogen 24 mg/dL (9-23); C-Reactive Protein 21.1 mg/dL (0.0-0.9); Calcium (Corrected) 9.2 mg/dL (8.5-10.1); Carbon Dioxide 24.6 mMol/L (20.0-31.0); Chloride 105 mMol/L (98-107); Creatinine (Component) 1.5 mg/dL (0.6-1.3); Globulin 2.7 gm/dL (2.3-3.5); Glucose 212 mg/dL (74-106); Magnesium 1.2 mg/dL (1.6-2.6); Osmolality,Calculated 287 (275-295); Potassium 4.7 mMol/L (3.4-5.1); Sodium 139 mMol/L (136-145); Total Protein 6.5 gm/dL (5.7-8.2); eGFR 53 See Note
--- NOTE | 2024-07-22 07:46 | PD.RESPRO ---
Documentation for date of: 07/22/24 Subjective Subjective Interval history: No acute overnight events. Pain well-controlled, denies fever, chills, headaches, chest pain, sob, cough, GI or urinary symptoms. Vital stable, on room air. WBC 12.8 and downtrending, Hgb slightly down to 10.2 likely dilutional. GINNY improving, creatinine 1.8 > 1.5. Underwent bedside blister debridement abscesses draining with general surgery, no surgical intervention from general surgery team. Continued on ANTIBIOTICS, ID consulted and recommendations pending Exam Vital Signs Temp Pulse Resp BP Pulse Ox O2 Del Method 99.0 F 106 H 20 134/91 H 97 Room Air 07/22/24 04:00 07/22/24 04:47 07/22/24 04:47 07/22/24 04:00 07/22/24 04:00 07/22/24 04:00 Narrative Exam General: A/O x3, no acute distress Eyes: PERRL, EOMI. Anicteric, vision grossly intact. Ears: No ear pain, no ear discharge, Hearing grossly intact. Nose: No nasal discharge. Mouth/Throat: Moist mucous membranes, no redness, no lesions. Neck: Neck supple, non-tender, no cervical lymphadenopathy. Lungs: Clear MICKY to auscultation and percussion, No accessory muscle use. Cardio: Normal S1/S2, regular rhythm, no murmurs, no JVD Abdomen: Soft, non-tender, no palpable masses, peristalsis present, no guarding or rebound. Extremities: Symmetrical, no significant deformities, no peripheral edema , non-tender, peripheral pulses presents. Right foot lateral lesion besides the fifth toe with necrotic changes and is around 4 to 5 cm in diameter, but no discharge seen. Erythematous and tender to palpation Skin: No rashes, no lesions, warm to touch. Neuro: No focal neurological deficits. motor and sensory intact Psych: Cooperative, appropriate mood and effect. Objective Labs 07/23/24 04:41 07/23/24 04:41 Labs: Laboratory Results - last 24 hr 07/21/24 07/21/24 07/22/24 18:15 21:41 05:40 WBC 13.3 H 12.8 H RBC 3.29 L 3.04 L Hgb 11.0 L 10.2 L Hct 29.9 L 28.5 L MCV 91 94 MCH 33.4 33.6 MCHC 36.8 35.8 RDW Std Deviation 38.5 39.7 Plt Count 201 181 Neut % (Auto) 81 H 76 Lymph % (Auto) 9 L 11 [place] % (Auto) 9 12 Eos % (Auto) 1 1 Baso % (Auto) 0 0 Neut # (Auto) 10.7 H 9.7 H Lymph # (Auto) 1.1 1.4 [place] # (Auto) 1.2 H 1.5 H Eos # (Auto) 0.1 0.2 Baso # (Auto) 0.0 0.0 Immature Gran # (Auto) 0.04 H 0.04 H Absolute Nucleated RBC 0.00 0.00 Immature Gran % 0 0 Nucleated RBC % 0 0 ESR 62 H PT 11.5 INR 1.1 APTT 30.8 Sodium 138 139 Potassium 5.1 4.6 D 4.7 Chloride 104 105 Carbon Dioxide 25.2 24.6 Anion Gap 9 9 BUN 31 H 24 H Creatinine 1.8 H 1.5 H Estim Creat Clear Calc Not Performed. 56.0 L eGFR 43 L 53 L BUN/Creatinine Ratio 17 16 Glucose [address] Glu mg/dL 134 H Hemoglobin A1c 6.3 H Calculated Osmolality 294 287 Lactic Acid 1.2 0.7 Calcium 9.5 9.0 Corrected Calcium 9.5 9.2 Magnesium 1.2 L Total Bilirubin 1.0 1.1 ALT 17 13 Alkaline Phosphatase 87 77 C-Reactive Prot, Quant 20.2 H 21.1 H Total Protein 7.2 6.5 Albumin 4.2 3.8 Globulin 3.0 2.7 Albumin/Globulin Ratio 1.4 1.4 Procalcitonin 0.30 Quality Measures Quality Measures VTE prophylaxis Assessment & Plan Assessment Current Active Medications: Generic Name Dose Route Start Last Admin Trade Name Freq PRN Reason Stop Dose Admin Acetaminophen 650 mg 07/21/24 21:21 07/21/24 23:59 Acetaminophen 325 Mg Tablet PO 08/20/24 21:20 650 mg Q6H PRN Administration pain and Fever >100.4 Hydrocodone Bitart/Acetaminophen 1 tab 07/21/24 21:21 Hydrocodone/Apap 5/325 Tablet PO 07/26/24 21:20 Q4HR PRN PAIN SCALE 4-6 (Moderate Dextrose 25 ml 07/21/24 21:21 Dextrose 50%-Water Inj 50 Ml Syringe IV 08/20/24 21:20 Q15MIN PRN BG 50-70 responsive npo pt Dextrose 50 ml 07/21/24 21:21 Dextrose 50%-Water Inj 50 Ml Syringe IV 08/20/24 21:20 Q15MIN PRN BG <50 OR BG <70 & pt unresponsive Glucagon 1 mg 07/21/24 21:21 Glucagon Inj 1 Mg Vial IM Q15MIN PRN BG <70, and no IV access Cefepime HCl 2 gm/ Sodium 50 mls @ 100 mls/hr 07/22/24 09:00 Chloride IV 07/29/24 08:59 Q12HR [facility] Insulin Human Lispro 0 unit 07/21/24 21:30 07/22/24 03:49 Insulin Lispro (Admelog) 1 Unit/0.01 Ml Unit SC 08/20/24 21:29 Not Given Q6H [facility] Protocol Ondansetron HCl 4 mg 07/21/24 21:21 Ondansetron Inj 2 Mg/Ml Inj 2 Ml IVP 08/20/24 21:20 Q6H PRN NAUSEA OR VOMITING Protocol Pharmacy Consult 1 each 07/22/24 09:00 Vancomycin Pharmacy To Dose 1 Each Each IV 08/21/24 08:59 QDAY [facility] Pharmacy Consult 1 each 07/21/24 21:34 Pharmacy To Consult Patient XX 08/20/24 21:33 PRN PRN CONSULT Plan 59-year-old male with past medical history of DM2 and hypertension was admitted to the hospital on observation on 07/21/2024 for right foot cellulitis and possible right fifth toe osteomyelitis. Appreciate recommendations from general surgery and infectious disease team. Afebrile, BP 134/91, HR 106. WBC 12 improving, Hgb 10 stable CR 1.8>1.5, GLUCOSE 212, mag 1.2, repleted Right foot cellulitis Possible right fifth toe osteomyelitis Hx of DM2 Presenting with RLE pain and swelling, found to have cellulitis and draining abscess of right foot, x-ray showed osteomyelitis of right fifth digit. Admission WBC 13.1, ESR 62, CRP 20.2. Negative lactic acid and PRO-WALTER. Underwent bedside I&D with general surgery, no surgical intervention needed at this time per surgery team. Remains afebrile, leukocytosis improving, pain controlled. ? Discontinued VANCOMYCIN, 2/2 GINNY (07/21 to 07/22) ? Continue CEFEPIME (07/21 to present) ? Started DOXYCYCLINE IV BID (07/21 to present) ? May need 6 weeks IV ANTIBIOTICS. ? Pending ID recommendations GINNY (improving) Admission CR 1.8, likely prerenal, dehydration versus poor intake. Improving with IVF, 24-hour urine output 500 cc and adequate. ? Renally dose meds, avoid overdiuresis and NEPHROTOXINS ? Daily CMP ? Continue IVF at 80 cc/H T2DM A1c 6.3 this visit. ? INSULIN sliding scale ? Accu-Cheks HTN Currently normotensive ? Resume home LISINOPRIL 10 mg daily. Normocytic normochromic anemia Admission Hgb 11, baseline /. No signs or symptoms of active bleed, coag panel WNL. ? Daily CBC Electrolyte abnormalities Magnesium 1.2, repleted Health maintenance Diet: CHO consistent GI prophylaxis: Not indicated DVT prophylaxis: HEPARIN subcu Antibiotics: CEFEPIME, DOXYCYCLINE CODE STATUS: Full code Disposition: Pending ID recommendations Case was discussed with attending physician and senior resident. Tejinder Iqbal DO PGYI Attending Provider Attestation/Addendum I, Millie Chung DO, attest that I was physically present for the belcher portions of the service and evaluated the patient with the resident and I reviewed and discussed the case with the resident and agree with the resident's findings and plans of care as documented above Patient seen and evaluated this AM. Wound was debrided at bedside by surgeon. Patient states that the wound began due to his tight shoes. He denies any other causes for breaks in skin. Patient only takes metformin at home. Wound over dorsum of right foot is necrotic with malodor and some purulent drainage. Will consult ID for antibiotic coverage and wound care
[2024-07-22 08:27] LABS: Sed Rate (ESR) 60 mm/hr (0-20)
[2024-07-22] MEDS: ONDANSETRON INJ 2 MG/ML INJ 2 ML 4 MG IVP (08:30)
[2024-07-22] MEDS: Magnesium Sulfate 4 GM Ivpb 4 GM/50 ML BAG IV (08:30)
[2024-07-22] MEDS: HYDROcodone/APAP 5/325 TABLET 1 TAB PO ×2 (08:30→14:15)
[2024-07-22] MEDS: CEFEPIME INJ 2 GM in SODIUM CHLORIDE 0.9% (Popper) 50 ML IV ×2 (09:17→21:22)
--- NOTE | 2024-07-22 09:31 | PC.NURSE ---
Dr. Juarez at bedside assess patient.
--- NOTE | 2024-07-22 09:36 | ESCONSULT_ITS ---
HPI Consult details Consult date: 07/22/24 Reason for consultation narrative: Right foot cellulitis and osteomyelitis History of present illness: 59-year-old male with history of hypertension and diabetes has had right second toe amputated in the past. He states that he has been wearing tight shoes and developed a blister on the lateral aspect of right foot about a week ago that has been getting progressively worse. X-ray of the right foot revealed soft tissue infection with osteomyelitis of the fifth toe. Patient was started on IV antibiotics and admitted for further management. Review of Systems Constitutional Constitutional: Denies chills and Denies fever(s) Cardiovascular Cardiovascular: Denies chest pain Respiratory Respiratory: Denies cough Gastrointestinal Gastrointestinal: Denies abdominal pain Hematologic/Lymphatic Hematologic/Lymphatic: Denies easy bleeding and Denies easy bruising Past Medical History Surgical History OTHER SURGICAL HX: Right second toe amputation Social History SMOKING STATUS: Former smoker SUBSTANCE USE: does not use ALCOHOL: Former Meds Home Medications and Allergies Home Medications ?Medication ?Instructions ?Recorded ?Confirmed ?Type lisinopril 10 mg tablet 10 mg PO DAILY 07/21/24 06/0 09/07 History metformin 1,000 mg tablet 1,000 mg PO DAILY 07/21/24 0 07/21/24 History Allergies Allergy/AdvReac Type Severity Reaction Status Date / Time No Known Allergies Allergy Verified 05/19/23 01:31 Exam Vital Signs Temp Pulse Resp BP Pulse Ox O2 Del Method 97.8 F 90 18 139/97 H 95 Room Air 07/22/24 07:48 07/22/24 07:48 07/22/24 07:48 07/22/24 07:48 07/22/24 07:48 07/22/24 04:00 Constitutional Constitutional: no acute distress Routine Extremities Exam Comments: Right foot exam revealed amputation of right second toe that is healed well. He has some edema and cellulitis of right foot. He has a blister on the lateral aspect of right fifth toe. He has palpable dorsalis pedis and posterior tibial pulses Results Results: Laboratory Laboratory results: results reviewed Results: Imaging Imaging narrative: X-ray of right foot images reviewed, radiologist interpretation noted Assessment & Plan Additional Assessment Additional comments: Osteomyelitis of right fifth toe, blister formation and underlying abscess Plan Blister was debrided at his bedside and underlying abscess was drained. Wound was washed and irrigated. Continue IV antibiotics and wound care as directed. No further intervention indicated at this time, will follow.
[2024-07-22] MEDS: ASCORBIC ACID 250 MG TABLET 500 MG PO ×2 (09:49→21:22)
[2024-07-22] MEDS: ZINC SULFATE 220 MG CAPSULE PO (09:49)
[2024-07-22] MEDS: VANCOMYCIN/NS 750 MG IVPB 750 MG/150 ML BAG 120 MG IV (09:49)
--- NOTE | 2024-07-22 11:30 | PC.NURSE ---
Patient states in Croatian Doctor came and open up my skin.
[2024-07-22] MEDS: INSULIN LISPRO (AdmeLOG) 1 UNIT/0.01 ML UNIT SC ×3 (11:31→21:26)
[2024-07-22] MEDS: Lisinopril 2.5 MG TABLET 10 MG PO (11:32)
[2024-07-22] MEDS: SODIUM CHLORIDE 0.9% 1000 ML 1,000 ML 80 ML IV (13:42)
[2024-07-22] MEDS: HEPARIN SOD INJ 5000 UNIT/ML VIAL SC ×2 (13:43→21:27)
[2024-07-22] MEDS: DIPHTH,PERTUSS(ACELL),TET VAC 0.5 ML SYR- ADULT IMi (13:55)
--- NOTE | 2024-07-22 14:51 | PC.SS ---
Christiano Mcfadden is 59 year old male admitted to [facility] for Cellulitis R Foot. SS conducted bedside contact with the patient to complete initial assessment and to discuss discharge planning.? SW used all precautionary measures to complete initial. Role and reason for the contact was explained to Christiano. Pt is alert and oriented times 4. Pt gave verbal authorization for family to be in room. Daughters, Becky and spouse Carley. SS used distribution operation supervisor network for assistance with translation. Patient confirmed demographic information and lives with family at address on facesheet. Patient identifies Carley Mcfadden, spouse, as his surrogate decision maker. Pt states prior to hospitalization pt is able to complete most ADL?s independently and needs periodical help. Pt uses walker, and cane. Pt does not use O2. Pt has diabetes and manages this with pills. Pt does not have dialysis. Pts PCP is Dr. Jonathan Krishnan. Pharmacy of choice is [facility] in [place]. Pt does not have advance life directive and not interested at time of visit. Pt does not have history of mental health or substance. Discharge options discussed and the pt will return home. Pt is open to HH but does not want same provider as last time, pt unable to remember name, as provider did not show up when stated they would and pt felt he was not properly assessed by team. ?Family will provide transportation upon DC. No further intervention required at this time, 7th grade social studies teacher would be available to address any further concerns. DC Plan: Home Contact: Carley Mcfadden spouse, [phone]- Address: Confirmed on face sheet PCP: Jonathan Krishnan
--- NOTE | 2024-07-22 14:52 | PC.NURSE ---
Wound care provided to right foot, cleaned with dakins solution, pat dry, and wet to dry, pt tolerated well.
--- NOTE | 2024-07-22 15:45 | PC.SS ---
SS spoke with Nani, registration, to update next of kin: Becky Elam,
--- NOTE | 2024-07-22 15:58 | PC.SS ---
SS submitted [facility] referral SS spoke with Nani, registration, updated Kusum's telephone number SS discovered Becky telephone number incorrect; correct [phone]; [place] address [place] [id number] [place] [address] [place] [address]
[2024-07-22] MEDS: DOXYCYCLINE INJ 100 MG in SODIUM CHLORIDE 0.9% (POP) 100 ML IV (21:21)
[2024-07-23] VITALS (8 sets, daily range): BP systolic 108–149; BP diastolic 73–86; PULSE 73–91; RESP 16–93; TEMP 36.4–37.8; O2SAT 93–96
[2024-07-23] MEDS: HEPARIN SOD INJ 5000 UNIT/ML VIAL SC ×3 (05:24→21:07)
[2024-07-23 05:36] LABS: Basophils % (Auto) 0 % (0-2.5); Eosinophils # (Auto) 0.2 Thou/mm3 (0.0-0.5); Eosinophils % (Auto) 2 % (0-10); Hematocrit 26.9 % (41.0-53.0); Hemoglobin 9.6 g/dL (13.5-16.0); Immature Granulocytes % (Auto) 1 % (0-0); Immature Granulocytes Auto 0.06 Thou/mm3 (0.00-0.00); Lymphocytes # (Auto) 1.2 Thou/mm3 (1.0-4.8); Lymphocytes % (Auto) 12 % (10-50); Mean Corpuscular HGB Conc 35.7 g/dl (31.0-37.0); Mean Corpuscular Hemoglobin 33.2 pg (25.0-35.0); Mean Corpuscular Volume 93 fL (80-100); Monocytes # (Auto) 1.1 Thou/mm3 (0.0-0.8); Monocytes % (Auto) 10 % (0-12); Neutrophils # (Auto) 7.5 Thou/mm3 (1.8-7.7); Neutrophils % (Auto) 74 % (37-80); Nucleated Red Blood Cell % 0 /100 WBC (0); Platelet Count 181 Thou/mm3 (140-440); RDW Standard Deviation 40.1 fL (35.1-43.9); Red Blood Count 2.89 Miln/mm3 (4.50-5.90); White Blood Count 10.1 Thou/mm3 (3.8-10.6)
[2024-07-23 06:12] LABS: Sed Rate (ESR) 63 mm/hr (0-20)
[2024-07-23 06:14] LABS: Alanine Aminotransferase 13 U/L (10-49); Albumin, Serum 3.7 gm/dL (3.5-5.0); Albumin/Globulin Ratio 1.4 (1.2-2.2); Alkaline Phosphatase 84 U/L (46-116); Anion Gap 8 (7-16); BUN/Creatinine Ratio 14 Ratio (12-20); Bilirubin,Total 0.5 mg/dL (0.3-1.2); Blood Urea Nitrogen 23 mg/dL (9-23); Calcium 8.8 mg/dL (8.3-10.6); Chloride 103 mMol/L (98-107); Creatinine (Component) 1.6 mg/dL (0.6-1.3); Estimated Creatinine Clearance 52.5 mL/min (>60); Globulin 2.7 gm/dL (2.3-3.5); Glucose 285 mg/dL (74-106); Magnesium 1.7 mg/dL (1.6-2.6); Osmolality,Calculated 283 (275-295); Potassium 4.7 mMol/L (3.4-5.1); Sodium 135 mMol/L (136-145); Total Protein 6.4 gm/dL (5.7-8.2); eGFR 49 See Note
[2024-07-23] MEDS: ZINC SULFATE 220 MG CAPSULE PO (08:16)
[2024-07-23] MEDS: Lisinopril 2.5 MG TABLET 10 MG PO (08:16)
[2024-07-23] MEDS: ASCORBIC ACID 250 MG TABLET 500 MG PO ×2 (08:16→20:45)
[2024-07-23] MEDS: CEFEPIME INJ 2 GM in SODIUM CHLORIDE 0.9% (Popper) 50 ML IV (08:16)
[2024-07-23] MEDS: INSULIN LISPRO (AdmeLOG) 1 UNIT/0.01 ML UNIT SC ×4 (08:17→22:06)
[2024-07-23] MEDS: SODIUM CHLORIDE 0.9% 1000 ML 1,000 ML 125 ML IV ×2 (08:19→20:42)
[2024-07-23] MEDS: HYDROcodone/APAP 5/325 TABLET 1 TAB PO ×2 (08:26→21:06)
--- NOTE | 2024-07-23 10:41 | ESPR_ITS ---
<Statement entered by James John MD - 07/23/24 13:05> Patient underwent I&D by Dr. Rush yesterday. No significant overnight events. Morning labs significant for hyperglycemia, glargine added. We will continue with IV Cefepime and Doxycycline. ID is consulted for further reccs. I discussed with and supervised the internal medicine doctor physician involved in the care of this patient. Patient assessment and plan was discussed with entire medicine team, including my attending. I agree with the assessment and plan as documented by internal medicine doctor doctor. Patient care was discussed with my attending physician Dr. Juliet John, PGY-2 Documentation for date of: 07/23/24 Subjective Subjective Interval history: No acute overnight events. Denies fever, chills, headaches, chest pain, sob, cough, GI or urinary symptoms. Vital stable. CBC stable without leukocytosis. Sodium 135, CR 1.6, started fluids. GLUCOSE 285, adjusted INSULIN, started glargine 4 units HS continue to sliding scale. Currently pending ID recommendations for IV ANTIBIOTICS for osteomyelitis. Exam Vital Signs Temp Pulse Resp BP Pulse Ox O2 Del Method 97.5 F 89 16 133/83 H 93 L Room Air 07/23/24 08:00 07/23/24 09:33 07/23/24 09:33 07/23/24 08:16 07/23/24 08:00 07/23/24 08:00 Narrative Exam General: A/O x3, no acute distress Eyes: PERRL, EOMI. Anicteric, vision grossly intact. Ears: No ear pain, no ear discharge, Hearing grossly intact. Nose: No nasal discharge. Mouth/Throat: Moist mucous membranes, no redness, no lesions. Neck: Neck supple, non-tender, no cervical lymphadenopathy. Lungs: Clear MICKY to auscultation and percussion, No accessory muscle use. Cardio: Normal S1/S2, regular rhythm, no murmurs, no JVD Abdomen: Soft, non-tender, no palpable masses, peristalsis present, no guarding or rebound. Extremities: Symmetrical, no significant deformities, no peripheral edema , non-tender, peripheral pulses presents. Right foot lateral lesion besides the fifth toe, dressing intact, dry and in place. Cellulitis improving. Skin: No rashes, no lesions, warm to touch. Neuro: No focal neurological deficits. motor and sensory intact Psych: Cooperative, appropriate mood and effect. Objective Labs 07/24/24 04:23 07/24/24 04:23 Labs: Laboratory Results - last 24 hr 07/23/24 04:41 WBC 10.1 RBC 2.89 L Hgb 9.6 L Hct 26.9 L MCV 93 MCH 33.2 MCHC 35.7 RDW Std Deviation 40.1 Plt Count 181 Neut % (Auto) 74 Lymph % (Auto) 12 [place] % (Auto) 10 Eos % (Auto) 2 Baso % (Auto) 0 Neut # (Auto) 7.5 Lymph # (Auto) 1.2 [place] # (Auto) 1.1 H Eos # (Auto) 0.2 Baso # (Auto) 0.0 Immature Gran # (Auto) 0.06 H Absolute Nucleated RBC 0.00 Immature Gran % 1 H Nucleated RBC % 0 ESR 63 H Sodium 135 L Potassium 4.7 Chloride 103 Carbon Dioxide 24.0 Anion Gap 8 BUN 23 Creatinine 1.6 H Estim Creat Clear Calc 52.5 L eGFR 49 L BUN/Creatinine Ratio 14 Glucose 285 H D Calculated Osmolality 283 Calcium 8.8 Corrected Calcium 9.0 Magnesium 1.7 Total Bilirubin 0.5 D ALT 13 Alkaline Phosphatase 84 Total Protein 6.4 Albumin 3.7 Globulin 2.7 Albumin/Globulin Ratio 1.4 Quality Measures Quality Measures VTE prophylaxis Assessment & Plan Assessment Current Active Medications: Generic Name Dose Route Start Last Admin Trade Name Freq PRN Reason Stop Dose Admin Acetaminophen 650 mg 07/22/24 11:24 Acetaminophen 325 Mg Tablet PO 08/20/24 21:20 Q6H PRN pain and Fever >100.4 Hydrocodone Bitart/Acetaminophen 1 tab 07/21/24 21:21 07/23/24 08:26 Hydrocodone/Apap 5/325 Tablet PO 07/26/24 21:20 1 tab Q4HR PRN Administration PAIN SCALE 4-6 (Moderate Ascorbic Acid 500 mg 07/22/24 09:45 07/23/24 08:16 Ascorbic Acid 250 Mg Tablet PO 08/21/24 09:44 500 mg BID ANGELA Administration Dextrose 25 ml 07/22/24 11:14 Dextrose 50%-Water Inj 50 Ml Syringe IV 08/21/24 11:13 Q15MIN PRN BG 50-70 responsive npo pt Dextrose 50 ml 07/22/24 11:14 Dextrose 50%-Water Inj 50 Ml Syringe IV 08/21/24 11:13 Q15MIN PRN BG <50 OR BG <70 & pt unresponsive Glucagon 1 mg 07/22/24 11:14 Glucagon Inj 1 Mg Vial IM Q15MIN PRN BG <70, and no IV access Heparin Sodium (Porcine) 5,000 unit 07/22/24 14:00 07/23/24 05:24 Heparin Sod Inj 5000 Unit/Ml Vial SC 08/05/24 13:59 5,000 unit Q8HR ANGELA Administration Cefepime HCl 2 gm/ Sodium 50 mls @ 100 mls/hr 07/22/24 09:00 07/23/24 08:16 Chloride IV 07/29/24 08:59 100 mls/hr Q12HR ANGELA Administration Doxycycline Hyclate 100 mg/ 100 mls @ 100 mls/hr 07/22/24 21:00 07/22/24 21:21 Sodium Chloride IV 07/29/24 20:59 100 mls/hr BID ANGELA Administration Sodium Chloride 1,000 mls @ 125 mls/hr 07/23/24 07:30 07/23/24 08:19 Ns IV 08/22/24 07:29 125 mls/hr .Q8H ANGELA Administration Insulin Glargine 4 unit 07/23/24 21:00 Insulin Glargine (Lantus) 5 Unit/0.05 Ml (Per 5 Units) SC 08/22/24 20:59 HS ANGELA Insulin Human Lispro 0 unit 07/22/24 11:30 07/23/24 08:17 Insulin Lispro (Admelog) 1 Unit/0.01 Ml Unit SC 08/21/24 11:29 2 unit ACHS ANGELA Administration Protocol Lisinopril 10 mg 07/22/24 11:15 07/23/24 08:16 Lisinopril 2.5 Mg Tablet PO 08/21/24 11:14 10 mg DAILY ANGELA Administration Ondansetron HCl 4 mg 07/21/24 21:21 07/22/24 08:30 Ondansetron Inj 2 Mg/Ml Inj 2 Ml IVP 08/20/24 21:20 4 mg Q6H PRN Administration NAUSEA OR VOMITING Protocol Sodium Hypochlorite 473 ml 07/23/24 09:00 Sod Hypochlorite 1/4 Str 473 Ml Btl IRRIG 08/22/24 08:59 QDAY ANGELA Zinc Sulfate 220 mg 07/22/24 09:45 07/23/24 08:16 Zinc Sulfate 220 Mg Capsule PO 08/21/24 09:44 220 mg QDAY ANGELA Administration Plan 59-year-old male with past medical history of DM2 and hypertension was admitted to the hospital on observation on 07/21/2024 for right foot cellulitis and possible right fifth toe osteomyelitis. Appreciate recommendations from general surgery and infectious disease team. Right foot cellulitis Possible right fifth toe osteomyelitis Hx of DM2 Presenting with RLE pain and swelling, found to have cellulitis and draining abscess of right foot, x-ray showed osteomyelitis of right fifth digit. Admission WBC 13.1, ESR 62, CRP 20.2. Negative lactic acid and PRO-WALTER. Underwent bedside I&D with general surgery, no surgical intervention needed at this time per surgery team. Remains afebrile, leukocytosis resolved, pain controlled. ? Discontinued VANCOMYCIN, 2/2 GINNY (07/21 to 07/22) ? Continue CEFEPIME (07/21 to present) ? Continue DOXYCYCLINE IV BID (07/21 to present) ? May need 6 weeks IV ANTIBIOTICS. ? Pending ID recommendations GINNY, likely prerenal Mild hyperosmotic hyponatremia, likely 2/2 hyperglycemia Admission CR 1.8, likely prerenal, dehydration versus poor intake. Improving with IVF, 24-hour urine output 500 cc and adequate. Urine output adequate. Sodium 135, osmolarity 283, serum GLUCOSE 285 ? Renally dose meds, avoid overdiuresis and NEPHROTOXINS ? Daily CMP ? Continue IVF at 125 cc/H ? GLUCOSE control as below T2DM A1c 6.3 this visit. ? INSULIN GLARGINE 48 HS ? INSULIN sliding scale ? Accu-Cheks HTN Currently normotensive ? Resume home LISINOPRIL 10 mg daily. Normocytic normochromic anemia Admission Hgb 11, baseline 9/10. No signs or symptoms of active bleed, coag panel WNL. ? Daily CBC Electrolyte abnormalities Magnesium 1.2, repleted Health maintenance Diet: CHO consistent GI prophylaxis: Not indicated DVT prophylaxis: HEPARIN subcu Antibiotics: CEFEPIME, DOXYCYCLINE CODE STATUS: Full code Disposition: Pending ID recommendations Case was discussed with attending physician and senior resident. Tejinder Iqbal DO PGYI Attending Provider Attestation/Addendum I, Millie Chung DO, attest that I was physically present for the belcher portions of the service and evaluated the patient with the resident and I reviewed and discussed the case with the resident and agree with the resident's findings and plans of care as documented above Patient seen eval this a.m. No acute events overnight. Patient states he has minimal pain. Continue with wound care. Pending ID recommendations regarding IV antibiotic versus oral antibiotics. Patient has been afebrile otherwise. Dressing otherwise is clean dry and intact.
[2024-07-23] MEDS: DOXYCYCLINE INJ 100 MG in SODIUM CHLORIDE 0.9% (POP) 100 ML IV (10:43)
--- NOTE | 2024-07-23 12:46 | PD.IDPROG ---
Subjective Subjective Interval history: osteo of 5th met and proximal 5th digit by xray with similar changes on ct a year ago. no surgery planned as noted Exam Vital Signs Temp Pulse Resp BP Pulse Ox O2 Del Method 98.4 F 77 18 133/77 H 94 L Room Air 07/23/24 12:00 07/23/24 12:00 07/23/24 12:00 07/23/24 12:00 07/23/24 12:00 07/23/24 08:00 Narrative Exam unable to see due to logistics. will order some tests for am and see on tue Objective - Internal Medicine Labs 07/23/24 04:41 07/23/24 04:41 Labs: Laboratory Results - last 24 hr 07/23/24 04:41 WBC 10.1 RBC 2.89 L Hgb 9.6 L Hct 26.9 L MCV 93 MCH 33.2 MCHC 35.7 RDW Std Deviation 40.1 Plt Count 181 Neut % (Auto) 74 Lymph % (Auto) 12 [place] % (Auto) 10 Eos % (Auto) 2 Baso % (Auto) 0 Neut # (Auto) 7.5 Lymph # (Auto) 1.2 [place] # (Auto) 1.1 H Eos # (Auto) 0.2 Baso # (Auto) 0.0 Immature Gran # (Auto) 0.06 H Absolute Nucleated RBC 0.00 Immature Gran % 1 H Nucleated RBC % 0 ESR 63 H Sodium 135 L Potassium 4.7 Chloride 103 Carbon Dioxide 24.0 Anion Gap 8 BUN 23 Creatinine 1.6 H Estim Creat Clear Calc 52.5 L eGFR 49 L BUN/Creatinine Ratio 14 Glucose 285 H D Calculated Osmolality 283 Calcium 8.8 Corrected Calcium 9.0 Magnesium 1.7 Total Bilirubin 0.5 D ALT 13 Alkaline Phosphatase 84 Total Protein 6.4 Albumin 3.7 Globulin 2.7 Albumin/Globulin Ratio 1.4 Assessment & Plan A&P Narrative Extensive osteo of L 5th met and 5th digit by imaging with stable inflammatory markers that are high good sized man at 5'4 and 215 lbs. bmi of 37.1 htn dm II a1c 6.3, down some from 7.4 a year ago or sobut creat also up some if bc from admit remain neg at 48hr, then iv rocephin 2 gm daily and po doxy 100 bid thru 09/02 with weekly cbc, renal panel, esr and line removal at end of rx. earliest I can see pt is wed. no need for outpt ID f/u after release Time Spent With Patient Time: Total time spent is greater than 50% in coordination of care (as documented) at patient's floor/unit and/or counseling patient:
[2024-07-23] MEDS: SOD HYPOCHLORITE 1/4 STR 473 ML BTL IRRIG (12:53)
[2024-07-23] MEDS: cefTRIAXone 2 GM in SODIUM CHLORIDE 0.9% (Popper) 50 ML IV (13:41)
--- NOTE | 2024-07-23 15:46 | PC.SS ---
rounding note: Pending ID consult. Patient remains on iv antibiotics.
[2024-07-23] MEDS: DOXYCYCLINE 100 MG TABLET PO (20:45)
[2024-07-23] MEDS: SOD HYPOCHLORITE 1/4 STR 473 ML BTL TOP (20:45)
[2024-07-23] MEDS: INSULIN GLARGINE (Lantus) 5 UNIT/0.05 ML (PER 5 UNITS) 4 UNIT SC (21:35)
[2024-07-24] VITALS (9 sets, daily range): BP systolic 117–189; BP diastolic 57–98; PULSE 69–83; RESP 16–19; TEMP 36.5–37.2; O2SAT 93–96
[2024-07-24] MEDS: INSULIN LISPRO (AdmeLOG) 1 UNIT/0.01 ML UNIT 2 UNIT SC (00:35)
[2024-07-24 05:21] LABS: Basophils % (Auto) 0 % (0-2.5); Eosinophils # (Auto) 0.3 Thou/mm3 (0.0-0.5); Eosinophils % (Auto) 4 % (0-10); Hematocrit 26.9 % (41.0-53.0); Hemoglobin 9.4 g/dL (13.5-16.0); Immature Granulocytes % (Auto) 1 % (0-0); Immature Granulocytes Auto 0.06 Thou/mm3 (0.00-0.00); Lymphocytes # (Auto) 1.7 Thou/mm3 (1.0-4.8); Lymphocytes % (Auto) 18 % (10-50); Mean Corpuscular HGB Conc 34.9 g/dl (31.0-37.0); Mean Corpuscular Hemoglobin 33.6 pg (25.0-35.0); Mean Corpuscular Volume 96 fL (80-100); Monocytes # (Auto) 0.9 Thou/mm3 (0.0-0.8); Monocytes % (Auto) 10 % (0-12); Neutrophils # (Auto) 6.4 Thou/mm3 (1.8-7.7); Neutrophils % (Auto) 68 % (37-80); Nucleated Red Blood Cell % 0 /100 WBC (0); Platelet Count 241 Thou/mm3 (140-440); RDW Standard Deviation 41.1 fL (35.1-43.9); White Blood Count 9.5 Thou/mm3 (3.8-10.6)
[2024-07-24] MEDS: SODIUM CHLORIDE 0.9% 1000 ML 1,000 ML 125 ML IV (05:33)
[2024-07-24] MEDS: HEPARIN SOD INJ 5000 UNIT/ML VIAL SC ×3 (05:34→21:19)
[2024-07-24 06:05] LABS: Alanine Aminotransferase 14 U/L (10-49); Albumin, Serum 3.8 gm/dL (3.5-5.0); Albumin/Globulin Ratio 1.3 (1.2-2.2); Alkaline Phosphatase 90 U/L (46-116); Anion Gap 12 (7-16); BUN/Creatinine Ratio 14 Ratio (12-20); Bilirubin,Total 0.4 mg/dL (0.3-1.2); Blood Urea Nitrogen 20 mg/dL (9-23); Calcium 9.2 mg/dL (8.3-10.6); Calcium (Corrected) 9.4 mg/dL (8.5-10.1); Carbon Dioxide 23.9 mMol/L (20.0-31.0); Chloride 104 mMol/L (98-107); Creatinine (Component) 1.4 mg/dL (0.6-1.3); Glucose 221 mg/dL (74-106); Magnesium 1.4 mg/dL (1.6-2.6); Osmolality,Calculated 289 (275-295); Potassium 4.6 mMol/L (3.4-5.1); Sodium 140 mMol/L (136-145); Total Protein 6.8 gm/dL (5.7-8.2); eGFR 58 See Note
[2024-07-24] MEDS: Lisinopril 2.5 MG TABLET 10 MG PO (09:16)
[2024-07-24] MEDS: ASCORBIC ACID 250 MG TABLET 500 MG PO ×2 (09:17→21:22)
[2024-07-24] MEDS: ZINC SULFATE 220 MG CAPSULE PO (09:17)
[2024-07-24] MEDS: cefTRIAXone 2 GM in SODIUM CHLORIDE 0.9% (Popper) 50 ML IV (09:17)
[2024-07-24] MEDS: INSULIN LISPRO (AdmeLOG) 1 UNIT/0.01 ML UNIT SC ×4 (09:17→21:16)
--- NOTE | 2024-07-24 10:37 | XR_ITS ---
Examination: Ultrasound-guided needle placement right brachial vein. Dual-lumen central line placement (PICC line). Fluoroscopy AP chest, portable, single view Exam date and time:July 24, 2024 1144 hours INDICATIONS: Need for long-term antibiotic therapy intravenous for osteomyelitis A timeout was completed verifying correct patient, procedure, site, positioning Informed consent provided Technique: The patient's site was prepped and draped in sterile fashion. Maximum Sterile Barrier Technique used including cap, mask, sterile gown, sterile gloves, and sterile full body drape. If ultrasound technique used: sterile gel and sterile probe covers. Hand Hygiene performed using proper scrub, soap and water, or alcohol-based hand rub. Site right portable apparatus utilized to confirm patency of the right brachial vein Utilizing ultrasonographic guidance successful 21-gauge needle puncture into the right brachial vein Ultrasound images recorded and stored. 5 cc 1% lidocaine administered for local anesthetic. Successful micropuncture with a 21-gauge needle is performed. 0.18 wire guide is then introduced into the SVC under fluoroscopic guidance. Dual-lumen catheter dilator is then introduced, followed by the catheter in the SVC and proper position under fluoroscopic guidance. Successful aspiration of blood and flushing with heparinized saline is then performed in the 2 venous limbs. The catheter sutured in place. Findings: Under fluoroscopy, the tip of the catheter is in good position in the vena cava. Portable chest x-ray, post line placement is ordered. Estimated blood loss 3 cc The patient tolerated the procedure well and was in stable and satisfactory condition at completion of the procedure Impression: Successful ultrasound-guided needle placement right jugular vein Successful placement of dual lumen central line, percutaneous Fluoroscopy 0.1 minute radiation dose 1.67 milligray 1 spot fluoroscopic chest. AP chest completion procedure demonstrates satisfactory position central line. May use central line.
--- NOTE | 2024-07-24 10:38 | ESPR_ITS ---
<Statement entered by James John MD - 07/25/24 00:47> Patient is day 2 SP I&D of right foot. Infectious disease recommended Rocephin 2 g IV daily along with doxycycline 100 mg twice daily. Patient will be on antibiotics until 09/02/24. PICC line was ordered, anticipating discharge patient within 24 hours. I discussed with and supervised the hr internship physician involved in the care of this patient. Patient assessment and plan was discussed with entire medicine team, including my attending. I agree with the assessment and plan as documented by hr internship doctor. Patient care was discussed with my attending physician Dr. Juliet John, PGY-2 Documentation for date of: 07/24/24 Subjective Subjective Interval history: No acute overnight events. Reports no new or worsening symptoms. Denies fever, chills, headaches, chest pain, sob, cough, GI or urinary symptoms. Afebrile, no leukocytosis. BP 174/93, likely 2/2 fluids which were discontinued today. CBC relatively stable. Kidney function improving, CR 1.4 today. ID recommended ROCEPHIN and DOXYCYCLINE, pending PICC line. Exam Vital Signs Temp Pulse Resp BP Pulse Ox O2 Del Method 98.7 F 83 17 158/88 H 96 Room Air 07/24/24 08:00 07/24/24 09:16 07/24/24 08:00 07/24/24 09:16 07/24/24 08:00 07/24/24 04:00 Narrative Exam General: A/O x3, no acute distress Eyes: PERRL, EOMI. Anicteric, vision grossly intact. Ears: No ear pain, no ear discharge, Hearing grossly intact. Nose: No nasal discharge. Mouth/Throat: Moist mucous membranes, no redness, no lesions. Neck: Neck supple, non-tender, no cervical lymphadenopathy. Lungs: Clear MICKY to auscultation and percussion, No accessory muscle use. Cardio: Normal S1/S2, regular rhythm, no murmurs, no JVD Abdomen: Soft, non-tender, no palpable masses, peristalsis present, no guarding or rebound. Extremities: Symmetrical, no significant deformities, no peripheral edema , non-tender, peripheral pulses presents. Right foot lateral lesion besides the fifth toe, dressing intact, dry and in place. Cellulitis improving. Skin: No rashes, no lesions, warm to touch. Neuro: No focal neurological deficits. motor and sensory intact Psych: Cooperative, appropriate mood and effect. Objective Labs 07/24/24 04:23 07/24/24 04:23 Labs: Laboratory Results - last 24 hr 07/24/24 04:23 WBC 9.5 RBC 2.80 L Hgb 9.4 L Hct 26.9 L MCV 96 MCH 33.6 MCHC 34.9 RDW Std Deviation 41.1 Plt Count 241 D Neut % (Auto) 68 Lymph % (Auto) 18 [place] % (Auto) 10 Eos % (Auto) 4 Baso % (Auto) 0 Neut # (Auto) 6.4 Lymph # (Auto) 1.7 [place] # (Auto) 0.9 H Eos # (Auto) 0.3 Baso # (Auto) 0.0 Immature Gran # (Auto) 0.06 H Absolute Nucleated RBC 0.00 Immature Gran % 1 H Nucleated RBC % 0 Sodium 140 Potassium 4.6 Chloride 104 Carbon Dioxide 23.9 Anion Gap 12 BUN 20 Creatinine 1.4 H Estim Creat Clear Calc 60.0 L eGFR 58 L BUN/Creatinine Ratio 14 Glucose 221 H D Calculated Osmolality 289 Calcium 9.2 Corrected Calcium 9.4 Magnesium 1.4 L Total Bilirubin 0.4 ALT 14 Alkaline Phosphatase 90 Total Protein 6.8 Albumin 3.8 Globulin 3.0 Albumin/Globulin Ratio 1.3 Quality Measures Quality Measures VTE prophylaxis Assessment & Plan Assessment Current Active Medications: Generic Name Dose Route Start Last Admin Trade Name Freq PRN Reason Stop Dose Admin Acetaminophen 650 mg 07/22/24 11:24 Acetaminophen 325 Mg Tablet PO 08/20/24 21:20 Q6H PRN pain and Fever >100.4 Hydrocodone Bitart/Acetaminophen 1 tab 07/21/24 21:21 07/23/24 21:06 Hydrocodone/Apap 5/325 Tablet PO 07/26/24 21:20 1 tab Q4HR PRN Administration PAIN SCALE 4-6 (Moderate Ascorbic Acid 500 mg 07/22/24 09:45 07/24/24 09:17 Ascorbic Acid 250 Mg Tablet PO 08/21/24 09:44 500 mg BID ANGELA Administration Dextrose 25 ml 07/22/24 11:14 Dextrose 50%-Water Inj 50 Ml Syringe IV 08/21/24 11:13 Q15MIN PRN BG 50-70 responsive npo pt Dextrose 50 ml 07/22/24 11:14 Dextrose 50%-Water Inj 50 Ml Syringe IV 08/21/24 11:13 Q15MIN PRN BG <50 OR BG <70 & pt unresponsive Doxycycline Hyclate 100 mg 07/23/24 21:00 07/23/24 20:45 Doxycycline 100 Mg Tablet PO 07/30/24 20:59 100 mg BID ANGELA Administration Glucagon 1 mg 07/22/24 11:14 Glucagon Inj 1 Mg Vial IM Q15MIN PRN BG <70, and no IV access Heparin Sodium (Porcine) 5,000 unit 07/22/24 14:00 07/24/24 05:34 Heparin Sod Inj 5000 Unit/Ml Vial SC 08/05/24 13:59 5,000 unit Q8HR ANGELA Administration Sodium Chloride 1,000 mls @ 125 mls/hr 07/23/24 07:30 07/24/24 05:33 Ns IV 08/22/24 07:29 125 mls/hr .Q8H ANGELA Administration Ceftriaxone Sodium 2 gm/ 50 mls @ 100 mls/hr 07/23/24 12:52 07/24/24 09:17 Sodium Chloride IV 07/30/24 12:51 100 mls/hr QDAY ANGELA Administration Insulin Glargine 4 unit 07/23/24 21:00 07/23/24 21:35 Insulin Glargine (Lantus) 5 Unit/0.05 Ml (Per 5 Units) SC 08/22/24 20:59 4 unit HS ANGELA Administration Insulin Human Lispro 0 unit 07/22/24 11:30 07/24/24 09:17 Insulin Lispro (Admelog) 1 Unit/0.01 Ml Unit SC 08/21/24 11:29 2 unit ACHS ANGELA Administration Protocol Lisinopril 10 mg 07/22/24 11:15 07/24/24 09:16 Lisinopril 2.5 Mg Tablet PO 08/21/24 11:14 10 mg DAILY ANGELA Administration Ondansetron HCl 4 mg 07/21/24 21:21 07/22/24 08:30 Ondansetron Inj 2 Mg/Ml Inj 2 Ml IVP 08/20/24 21:20 4 mg Q6H PRN Administration NAUSEA OR VOMITING Protocol Sodium Hypochlorite 473 ml 07/23/24 21:00 06/09/25 20:45 Sod Hypochlorite 02/17 Str 473 Ml Btl TOP 08/22/24 20:59 1 applicatio BID ANGELA Administration Zinc Sulfate 220 mg 07/22/24 09:45 07/24/24 09:17 Zinc Sulfate 220 Mg Capsule PO 08/21/24 09:44 220 mg QDAY ANGELA Administration Plan 59-year-old male with past medical history of DM2 and hypertension was admitted to the hospital on observation on 07/21/2024 for right foot cellulitis and possible right fifth toe osteomyelitis. Appreciate recommendations from general surgery and infectious disease team. Right foot cellulitis Possible right fifth toe osteomyelitis Hx of DM2 Presenting with RLE pain and swelling, found to have cellulitis and draining abscess of right foot, x-ray showed osteomyelitis of right fifth digit. Admission WBC 13.1, ESR 62, CRP 20.2. Negative lactic acid and PRO-WALTER. Underwent bedside I&D with general surgery, no surgical intervention needed at this time per surgery team. Remains afebrile, leukocytosis resolved, pain controlled. ID recommended IV ROCEPHIN 2 mg daily and oral DOXYCYCLINE 100 mg BID until 09/02/2024 (6 weeks); with weekly CBC, real panel, and ESR. Wound care recs: Please wash right foot wound with half strength Dakin's and then pack with wet-to-dry dressings twice daily. ? Discontinued VANCOMYCIN, 2/2 GINNY (07/21 to 07/22) ? Discontinued CEFEPIME (07/21 to 07/24) ? Continue DOXYCYCLINE PO BID (07/21 to 09/02) ? Continue CEFTRIAXONE IV BID (07/24 to 09/02) ? Pending repeat CRP and ESR GINNY, likely prerenal (improving) Mild hyperosmotic hyponatremia, likely 2/2 hyperglycemia (resolved) Admission CR 1.8, likely prerenal, dehydration versus poor intake. Improving with IVF, 24-hour urine output 500 cc and adequate. Urine output adequate. Sodium 135, osmolarity 283, serum GLUCOSE 285 ? Renally dose meds, avoid overdiuresis and NEPHROTOXINS ? Daily CMP ? GLUCOSE control as below T2DM A1c 6.3 this visit. ? INSULIN GLARGINE 4 HS ? INSULIN sliding scale ? Accu-Cheks ? Increase METFORMIN to 1000 mg BID on discharge HTN BP slightly elevated 2/2 fluids which were discontinued. ? Continued home LISINOPRIL 10 mg daily. Normocytic normochromic anemia Admission Hgb 11, baseline 9/10. No signs or symptoms of active bleed, coag panel WNL. ? Daily CBC Electrolyte abnormalities Magnesium 1.4, repleted Health maintenance Diet: CHO consistent GI prophylaxis: Not indicated DVT prophylaxis: HEPARIN subcu Antibiotics: CEFEPIME, DOXYCYCLINE CODE STATUS: Full code Disposition: Pending ID recommendations Case was discussed with attending physician and senior resident. Tejinder Iqbal DO PGYI Attending Provider Attestation/Addendum I, Millie Chung DO, attest that I was physically present for the belcher portions of the service and evaluated the patient with the resident and I reviewed and discussed the case with the resident and agree with the resident's findings and plans of care as documented above Patient seen eval this a.m. no acute events overnight. Patient will have PICC line placed today. Will set up for home health for IV antibiotics to continue until 09/02
[2024-07-24] MEDS: HEPARIN SOD LOCK SYR 100 UNIT/ML 500 UNIT IV (12:30)
[2024-07-24] MEDS: LIDOCAINE INJ PF 1% 30 ML VIAL INFL (12:31)
[2024-07-24] MEDS: SOD HYPOCHLORITE 1/4 STR 473 ML BTL TOP ×2 (13:11→21:23)
[2024-07-24] MEDS: DOXYCYCLINE 100 MG TABLET PO ×2 (13:12→21:22)
--- NOTE | 2024-07-24 13:12 | PC.NURSE ---
patient transfered via gurney back to [id number]. dressing is clean dry and intact. hand off report given to berta gunter.
--- NOTE | 2024-07-24 14:03 | ESPR_ITS ---
Documentation for date of: 07/24/24 Subjective Subjective Narrative: Patient is seen and examined. No acute events Exam Vital Signs Temp Pulse Resp BP Pulse Ox O2 Del Method 98.9 F 81 16 174/93 H 95 Room Air 07/24/24 13:19 07/24/24 13:19 07/24/24 13:19 07/24/24 13:19 07/24/24 13:19 07/24/24 12:34 Constitutional Constitutional: no acute distress Routine Extremities Exam Comments: Right foot cellulitis and edema improving. Has minimal drainage with no bleeding Assessment & Plan Assessment Additional comments: Status post bedside drainage and debridement of right foot Plan Wound care as directed. Continue antibiotic treatment. 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
--- NOTE | 2024-07-24 14:55 | PC.SS ---
Rounding: Pt received PICCLINE, pending establishment for HH
[2024-07-24] MEDS: Magnesium Sulfate 4 GM Ivpb 4 GM/50 ML BAG IV (15:01)
--- NOTE | 2024-07-24 15:25 | PC.CC ---
Recevied orders, referrals sent to [facility] and [facility], waiting for response
[2024-07-24] MEDS: Magnesium Sulfate 2 GM Ivpb 2 GM/50 ML BAG IV (19:17)
[2024-07-24] MEDS: INSULIN GLARGINE (Lantus) 5 UNIT/0.05 ML (PER 5 UNITS) 4 UNIT SC (21:16)
[2024-07-25] VITALS: BP 117/62; PULSE 77; RESP 18; TEMP 36.1; O2SAT 94
[2024-07-25 04:00] VITALS: BP 106/58; PULSE 77; RESP 18; TEMP 36.6; O2SAT 94
[2024-07-25 05:08] VITALS: PULSE 81; RESP 20; O2SAT 96
[2024-07-25] MEDS: HEPARIN SOD INJ 5000 UNIT/ML VIAL SC (05:17)
[2024-07-25] MEDS: INSULIN LISPRO (AdmeLOG) 1 UNIT/0.01 ML UNIT SC ×2 (07:56→11:53)
[2024-07-25 08:00] VITALS: BP 108/71; PULSE 78; RESP 18; TEMP 36.4; O2SAT 93
[2024-07-25] MEDS: cefTRIAXone/D5w 2gm 2 GM/50 ML BAG IV (09:13)
[2024-07-25 09:14] VITALS: BP 108/71; PULSE 92
[2024-07-25] MEDS: ASCORBIC ACID 250 MG TABLET 500 MG PO (09:14)
[2024-07-25] MEDS: ZINC SULFATE 220 MG CAPSULE PO (09:14)
[2024-07-25] MEDS: Lisinopril 2.5 MG TABLET 10 MG PO (09:14)
[2024-07-25] MEDS: DOXYCYCLINE 100 MG TABLET PO (09:15)
[2024-07-25] MEDS: SOD HYPOCHLORITE 1/4 STR 473 ML BTL TOP (09:15)
--- NOTE | 2024-07-25 10:56 | PC.CM ---
Addendum entered by Kylee Granados RN 07/26/24 10:30: discharge summary and PICC line paperwork sent to [facility] and [facility] Addendum entered by Kylee Granados RN 07/25/24 12:07: I called [facility] and I let them know that I reviewed patient's notes and patient did not want [facility]. The notes stated they were unhappy with the care. I let them know that [facility] was going to be following patient. Addendum entered by Kylee Granados RN 07/25/24 11:56: I reviewed notes and I see that patient did not want the previous home health agency. Patient had [facility]. Patient can be discharged today and he will be followed by [facility]. They will open him tomorrow. [facility] will deliver ABX today. Original Note: Patient had been opened to [facility] in the past. I am trying to find out if [facility] or [facility] will follow. Originally [facility] accepted and at the [facility] has accepted patient. Patient is ready for discharge once I find out which home health agency will follow.
[2024-07-25 12:00] VITALS: BP 134/78; PULSE 75; RESP 18; TEMP 36.1; O2SAT 93
--- NOTE | 2024-07-25 12:18 | ESDS_ITS ---
<Statement entered by Millie Chung DO - 07/26/24 13:01> I, Millie Chung DO, attest that I was physically present for the belcher portions of the service and evaluated the patient with the resident and I reviewed and discussed the case with the resident and agree with the resident's findings and plans of care as documented above <Statement entered by James John MD - 07/25/24 22:11> I discussed with and supervised the programming intern physician involved in the care of this patient. Patient assessment and plan was discussed with entire medicine team, including my attending. I agree with the assessment and plan as documented by programming intern doctor. Patient care was discussed with my attending physician Dr. Juliet John, PGY-2 Planned Discharge Date 07/25/24 DS: Providers Provider Date of admission: 07/22/24 11:26 Primary care physician: Jonathan Krishnan MD Admitting Provider: Arnold Jean-Baptiste MD Attending Provider on Admission: Millie Chung DO Consults: 07/21/24 21:34 Consult to General Surgery Routine Comment: Consulting Provider: Rosalina Juarez 07/22/24 10:21 Consult to Infectious Diseases Routine Comment: Osteo of right 5th digit Consulting Provider: Tristan Vásquez 07/22/24 13:35 Referral Wound Care Routine Comment: 07/22/24 18:40 [facility] Referral - Nutrition Routine Comment: Positive screening for nutrition needs. Attending Provider on DC: Millie Chung DO Discharging Provider: Millie Chung DO DS: Diagnosis Problem List Completed Was Problem List Reviewed/Reconciled?: Yes Hospital Course Hospital Course Hospital course: This is a 59-year-old male with past medical history of DM2 and hypertension was admitted to the hospital on observation on 07/21/2024 for right foot cellulitis an d possible right fifth toe osteomyelitis. Started on IV ANTIBIOTICS. General surgery performed bedside I&D, no surgical intervention was indicated. ID was consulted who recommended discharge on PICC line, IV ANTIBIOTICS for total of 6- week therapy and outpatient wound care and podiatry. He remained hemodynamically stable throughout the stay. Labs reviewed and are stable at the time of discharge. IMAGE FINDINGS: * Right foot CXR: Osteomyelitis fifth metatarsal, suspicious for early osteomyelitis base proximal phalanx of fifth digit. PATIENT INSTRUCTIONS: * Follow-up with PCP within 1-2 weeks of discharge. * Recommended referral to nephrology for GINNY, possible CKD stage II. * We increased METFORMIN dose to 1000 mg twice daily since A1c 6.3. * Continue taking CEFTRIAXONE 2 mg IV daily and DOXYCYCLINE 100 mg twice daily for total of 6 weeks, to end on 09/02/2024. * ID recommended weekly CBC, renal panel, and ESR. * Encourage oral hydration for mild GINNY. * Follow-up with wound care outpatient, recommendations as follows: wash right foot wound with half strength Dakin's and then pack with wet-to-dry dressings twice daily. * Recommended follow-up with nephrology regarding * Continue taking medications as prescribed below. * Return to Emergency Room if symptoms persist, worsen, or new symptoms develop. ADMISSION DIAGNOSES: Right foot cellulitis Possible right fifth toe osteomyelitis Hx of DM2 GINNY, likely prerenal (improving) Mild hyperosmotic hyponatremia, likely 2/2 hyperglycemia (resolved) T2DM HTN Normocytic normochromic anemia Electrolyte abnormalities Case was discussed with attending physician and senior resident. Tejinder Iqbal DO PGYI Time Spent with Patient Time attestation: Total time spent providing and/or coordinating discharge services: Greater than 35 minutes. Time spent: Greater than 30 minutes Home Health Home Health Referral Orders: 07/24/24 10:37 Home Health Referral Routine Reason For Exam: osteomyelitis Home-Bound The patient must either because of illness or injury, need the aid of supportive devices such as crutches, canes, wheelchairs, and walkers; the use of special transportation; or the assistance of another person in order to leave their place of residence; OR have a condition such that leaving his or her home is medically contraindicated. In addition, the patient also meets the following criteria: patient is normally unable to leave the home and leaving home requires considerable taxing effort. Addendum to Home Health Certification Practitioner's Certification: I certify that the patient has been under my care in the hospital and the care of attending physician (see below). We had a [id number] encounter on (see date below). My clinical findings indicate that the patient is home bound per the above criteria and the Home Health Services noted in these orders are medically necessary. The primary reason for the [id number] encounter is related to the fact that the patient requires home health services. Date Certifying Sedz-ds-Dmcy Physician Encounter: 07/21/24 Physician's Name who will Assume Oversight for Services: Jonathan Krishnan Physician's Phone No.who will Assume Oversight for Service: CHEMISTRY FACULTY MEMBER - Community Resources: No PT to Evaluate: Yes PT to evaluate and provide a treatmnet plan to increase patient's mobility and strength. Wound Care: Yes Home Health RN - Wound Care Order: as per wound care nurse IV Therapy: Yes: weekly cbc, renal panel, esr IV Medication: Ceftriaxone IV Dose: 2g IV Frequency: daily IV Stop Date: 09/02/24 Discontinue PICC Line Once Treatment Complete: Yes RN Safety Evaluation: Yes RN to evaluate and create a plan of care that will produce positive outcomes. Palliative Treatment: No Palliative treatment and evaluate the need for hospice. Home Health Aide - Personal Care: Yes Home Health Aide to assist with any ADL's. Exam Vital Signs Temp Pulse Resp BP Pulse Ox O2 Del Method O2 Flow Rate 97.6 F 92 18 108/71 93 L Room Air 2 07/25/24 08:00 07/25/24 09:14 07/25/24 08:00 07/25/24 09:14 07/25/24 08:00 07/24/24 12:34 07/25/24 05:08 Narrative Exam General: A/O x3, no acute distress Eyes: PERRL, EOMI. Anicteric, vision grossly intact. Ears: No ear pain, no ear discharge, Hearing grossly intact. Nose: No nasal discharge. Mouth/Throat: Moist mucous membranes, no redness, no lesions. Neck: Neck supple, non-tender, no cervical lymphadenopathy. Lungs: Clear MICKY to auscultation and percussion, No accessory muscle use. Cardio: Normal S1/S2, regular rhythm, no murmurs, no JVD Abdomen: Soft, non-tender, no palpable masses, peristalsis present, no guarding or rebound. Extremities: Symmetrical, no significant deformities, no peripheral edema , non-tender, peripheral pulses presents. Right foot lateral lesion besides the fifth toe, dressing intact, dry and in place. Cellulitis improving. Skin: No rashes, no lesions, warm to touch. Neuro: No focal neurological deficits. motor and sensory intact Psych: Cooperative, appropriate mood and effect. Discharge Plan Plan Patient Disposition: Home w/HOME HEALTH Patient condition on transfer: Stable Care Plan Goals: * Follow-up with PCP within 1-2 weeks of discharge. * Recommended referral to nephrology for GINNY, possible CKD stage II. * We increased METFORMIN dose to 1000 mg twice daily since A1c 6.3. * Continue taking CEFTRIAXONE 2 mg IV daily and DOXYCYCLINE 100 mg twice daily for total of 6 weeks, to end on 09/02/2024. * ID recommended weekly CBC, renal panel, and ESR. * Follow-up with wound care outpatient, recommendations as follows: wash right foot wound with half strength Dakin's and then pack with wet-to-dry dressings twice daily. * Encourage oral hydration for mild GINNY. * Recommended follow-up with nephrology regarding. * Continue taking medications as prescribed below. * Return to Emergency Room if symptoms persist, worsen, or new symptoms develop. Prescriptions/Referrals Prescriptions/Med Rec: New metformin 1,000 mg tablet 1,000 mg PO BID Qty: 60 0RF Continued lisinopril 10 mg tablet 10 mg PO DAILY Patient Comments: TAKE 1 TABLET BY MOUTH ONCE DAILY Discontinued metformin 1,000 mg tablet 1,000 mg PO DAILY Referrals: Jonathan Krishnan MD [Primary Care Provider] - Patient/Caregiver Discharge Instructions Education Materials: Discharge Instructions for Cellulitis, Osteomyelitis Dc, Taking Medicine for Diabetes, Type 2 Diabetes Print Language: Bahraini Stand Alone Forms: Bessy Award Info., Patient Portal Info Letter Discharge Order Discharge Orders: Discharge (Routine); Ordered 07/25/24 Ordered By: James John Quality Discharge Quality Measures VTE prophylaxis
--- NOTE | 2024-07-25 13:00 | PC.NURSE ---
upon dc, wound care supplies given to pt's daughter dinora and instructions on wound care.
--- NOTE | 2024-07-25 13:26 | PC.SS ---
Follow up note: SS spoke to transfer nurse and patient is ready for d/c. Db HERRERA will follow patient starting tomorrow. Patient will d/c with i.v. antibiotics. Updated physician team.
== END 2024-07-25 13:00 | disposition home health service (06) | DRG 638 ==
LOC: SERX 21:18 → SERHOLD 21:48 → S3SX 23:10
PROVIDERS: Nurse Practitioner Primary Care; Admitting Provider Student in an Organized Health Care Education/Training Program; Emergency Provider Emergency Medicine; PCP Family Medicine; Visit Provider Internal Medicine
DX: E11.69 Type 2 diabetes mellitus with other specified complication (principal); E87.1 Hypo-osmolality and hyponatremia; L02.611 Cutaneous abscess of right foot; L03.115 Cellulitis of right lower limb; M86.171 Other acute osteomyelitis, right ankle and foot; E11.65 Type 2 diabetes mellitus with hyperglycemia; N17.9 Acute kidney failure, unspecified; I10 Essential (primary) hypertension; D64.89 Other specified anemias; Z79.4 Long term (current) use of insulin; Z79.84 Long term (current) use of oral hypoglycemic drugs; Z79.899 Other long term (current) drug therapy; Z87.891 Personal history of nicotine dependence
CPT/HCPCS: 36415; 73630; 80053; 81001; 83036; 83605; 83735; 84132; 84145; 85025; 85610; 85652; 85730; 86140; 87040; 87811; 90715; 96365; 96367; 96372; 99285; C1751; C1894; G0378; J0692; J0696; J1642; J1644; J1815; J2405; J2543; J3370; J3475; J3490; J7030; J7050; A9270

== ENCOUNTER → 2024-07-31 | Outpatient (CLI) | payer MEDICARE, MEDICAID, SELFPAY ==
[2024-07-31 14:44] LABS: Basophils # (Auto) 0.1 Thou/mm3 (0.0-0.2); Basophils % (Auto) 0 % (0-2.5); Eosinophils # (Auto) 0.3 Thou/mm3 (0.0-0.5); Eosinophils % (Auto) 2 % (0-10); Hemoglobin 9.8 g/dL (13.5-16.0); Immature Granulocytes % (Auto) 1 % (0-0); Lymphocytes # (Auto) 1.3 Thou/mm3 (1.0-4.8); Lymphocytes % (Auto) 12 % (10-50); Mean Corpuscular HGB Conc 33.8 g/dl (31.0-37.0); Mean Corpuscular Hemoglobin 32.8 pg (25.0-35.0); Mean Corpuscular Volume 97 fL (80-100); Monocytes # (Auto) 0.7 Thou/mm3 (0.0-0.8); Monocytes % (Auto) 6 % (0-12); Neutrophils % (Auto) 79 % (37-80); Nucleated Red Blood Cell % 0 /100 WBC (0); Platelet Count 373 Thou/mm3 (140-440); RDW Standard Deviation 41.2 fL (35.1-43.9); Red Blood Count 2.99 Miln/mm3 (4.50-5.90); White Blood Count 11.4 Thou/mm3 (3.8-10.6)
[2024-07-31 15:06] LABS: Sed Rate (ESR) 58 mm/hr (0-20)
[2024-07-31 15:07] LABS: Alanine Aminotransferase 14 U/L (10-49); Albumin, Serum 3.7 gm/dL (3.5-5.0); Albumin/Globulin Ratio 1.2 (1.2-2.2); Alkaline Phosphatase 75 U/L (46-116); Anion Gap 12 (7-16); Aspartate Amino Transferase 12 U/L (0-34); BUN/Creatinine Ratio 22 Ratio (12-20); Bilirubin,Total 0.3 mg/dL (0.3-1.2); Blood Urea Nitrogen 37 mg/dL (9-23); Calcium (Corrected) 9.2 mg/dL (8.5-10.1); Carbon Dioxide 24.8 mMol/L (20.0-31.0); Chloride 100 mMol/L (98-107); Creatinine (Component) 1.7 mg/dL (0.6-1.3); Globulin 3.2 gm/dL (2.3-3.5); Glucose 234 mg/dL (74-106); Osmolality,Calculated 290 (275-295); Potassium 5.1 mMol/L (3.4-5.1); Sodium 137 mMol/L (136-145); Total Protein 6.9 gm/dL (5.7-8.2); eGFR 46 See Note
== END | disposition home or self-care (01) ==
PROVIDERS: PCP Family Medicine; Referring Provider Student in an Organized Health Care Education/Training Program; Visit Provider Hospitalist
DX: E11.621 Type 2 diabetes mellitus with foot ulcer (principal); Z79.2 Long term (current) use of antibiotics; Z79.3 Long term (current) use of hormonal contraceptives
CPT/HCPCS: 36415; 80053; 85025; 85652; 87070; 87075; 87077; 87186; 87205

== ENCOUNTER → 2024-07-31 | Outpatient (CLI) | payer MEDICARE, MEDICAID, SELFPAY | END | disposition home or self-care (01) | PROVIDERS: PCP Family Medicine; Referring Provider Family Medicine; Visit Provider Student in an Organized Health Care Education/Training Program | DX: E11.621 Type 2 diabetes mellitus with foot ulcer (principal); L97.513 Non-pressure chronic ulcer of other part of right foot with necrosis of muscle; I10 Essential (primary) hypertension; L02.611 Cutaneous abscess of right foot; M86.8X8 Other osteomyelitis, other site; E11.51 Type 2 diabetes mellitus with diabetic peripheral angiopathy without gangrene; Z79.85 Long-term (current) use of injectable non-insulin antidiabetic drugs | CPT/HCPCS: 11043; 11046 ×2; 99212; A9270; G0463 ==

== ENCOUNTER → 2024-09-18 | Outpatient (CLI) | payer MEDICARE, MEDICAID, SELFPAY | END | disposition home or self-care (01) | LOC: SWHD 09:17 | PROVIDERS: PCP Family Medicine; Referring Provider Family Medicine; Visit Provider Student in an Organized Health Care Education/Training Program | DX: E11.621 Type 2 diabetes mellitus with foot ulcer (principal); L97.514 Non-pressure chronic ulcer of other part of right foot with necrosis of bone; I10 Essential (primary) hypertension; L02.611 Cutaneous abscess of right foot; M86.8X8 Other osteomyelitis, other site; E11.51 Type 2 diabetes mellitus with diabetic peripheral angiopathy without gangrene; Z79.85 Long-term (current) use of injectable non-insulin antidiabetic drugs | CPT/HCPCS: 11042; A9270 ==

== ENCOUNTER → 2024-10-01 | Outpatient (CLI) | payer MEDICARE, MEDICAID, SELFPAY | END | disposition home or self-care (01) | LOC: SWHD 10:55 | PROVIDERS: PCP Family Medicine; Referring Provider Family Medicine; Visit Provider Student in an Organized Health Care Education/Training Program | DX: E11.621 Type 2 diabetes mellitus with foot ulcer (principal); L97.514 Non-pressure chronic ulcer of other part of right foot with necrosis of bone; I10 Essential (primary) hypertension; M86.8X8 Other osteomyelitis, other site; E11.51 Type 2 diabetes mellitus with diabetic peripheral angiopathy without gangrene; Z79.85 Long-term (current) use of injectable non-insulin antidiabetic drugs | CPT/HCPCS: 11044; A9270 ==

== ENCOUNTER → 2024-10-08 | Outpatient (CLI) | payer MEDICARE, MEDICAID, SELFPAY | END | disposition home or self-care (01) | LOC: SWHD 14:39 | PROVIDERS: PCP Family Medicine; Referring Provider Family Medicine; Visit Provider Student in an Organized Health Care Education/Training Program | DX: E11.621 Type 2 diabetes mellitus with foot ulcer (principal); L97.514 Non-pressure chronic ulcer of other part of right foot with necrosis of bone; I10 Essential (primary) hypertension; M86.8X8 Other osteomyelitis, other site; E11.51 Type 2 diabetes mellitus with diabetic peripheral angiopathy without gangrene; Z79.85 Long-term (current) use of injectable non-insulin antidiabetic drugs | CPT/HCPCS: 11042; A9270 ==

== ENCOUNTER → 2024-10-24 | Outpatient (CLI) | payer MEDICARE, MEDICAID, SELFPAY | END | disposition home or self-care (01) | LOC: SWHD 09:42 | PROVIDERS: PCP Family Medicine; Referring Provider Family Medicine; Visit Provider Student in an Organized Health Care Education/Training Program | DX: E11.621 Type 2 diabetes mellitus with foot ulcer (principal); L97.514 Non-pressure chronic ulcer of other part of right foot with necrosis of bone; I10 Essential (primary) hypertension; M86.8X8 Other osteomyelitis, other site; E11.51 Type 2 diabetes mellitus with diabetic peripheral angiopathy without gangrene; Z79.85 Long-term (current) use of injectable non-insulin antidiabetic drugs | CPT/HCPCS: 11042; A9270 ==

== ENCOUNTER → 2024-11-05 | Outpatient (CLI) | payer MEDICARE, MEDICAID, SELFPAY | END | disposition home or self-care (01) | LOC: SWHD 14:11 | PROVIDERS: PCP Family Medicine; Referring Provider Family Medicine; Visit Provider Surgery | DX: E11.621 Type 2 diabetes mellitus with foot ulcer (principal); L97.512 Non-pressure chronic ulcer of other part of right foot with fat layer exposed; I10 Essential (primary) hypertension; M86.8X8 Other osteomyelitis, other site; E11.51 Type 2 diabetes mellitus with diabetic peripheral angiopathy without gangrene; Z79.85 Long-term (current) use of injectable non-insulin antidiabetic drugs | CPT/HCPCS: 11042; A9270 ==

== ENCOUNTER → 2024-11-19 | Outpatient (CLI) | payer MEDICARE, MEDICAID, SELFPAY | END | disposition home or self-care (01) | LOC: SWHD 08:45 | PROVIDERS: PCP Family Medicine; Referring Provider Family Medicine; Visit Provider Student in an Organized Health Care Education/Training Program | DX: E11.621 Type 2 diabetes mellitus with foot ulcer (principal); L97.512 Non-pressure chronic ulcer of other part of right foot with fat layer exposed; I10 Essential (primary) hypertension; M86.8X8 Other osteomyelitis, other site; E11.51 Type 2 diabetes mellitus with diabetic peripheral angiopathy without gangrene; Z79.85 Long-term (current) use of injectable non-insulin antidiabetic drugs | CPT/HCPCS: 11042; A9270 ==

== ENCOUNTER → 2024-12-03 | Outpatient (CLI) | payer MEDICARE, MEDICAID, SELFPAY | END | disposition home or self-care (01) | LOC: SWHD 08:25 | PROVIDERS: PCP Family Medicine; Referring Provider Family Medicine; Visit Provider Student in an Organized Health Care Education/Training Program | DX: E11.621 Type 2 diabetes mellitus with foot ulcer (principal); L97.512 Non-pressure chronic ulcer of other part of right foot with fat layer exposed; I10 Essential (primary) hypertension; M86.8X8 Other osteomyelitis, other site; E11.51 Type 2 diabetes mellitus with diabetic peripheral angiopathy without gangrene; Z79.85 Long-term (current) use of injectable non-insulin antidiabetic drugs | CPT/HCPCS: 97597; A9270 ==

== ENCOUNTER → 2024-12-17 | Outpatient (CLI) | payer MEDICARE, MEDICAID, SELFPAY | END | disposition home or self-care (01) | LOC: SWHD 08:18 | PROVIDERS: PCP Family Medicine; Referring Provider Family Medicine; Visit Provider Student in an Organized Health Care Education/Training Program | DX: E11.621 Type 2 diabetes mellitus with foot ulcer (principal); L97.513 Non-pressure chronic ulcer of other part of right foot with necrosis of muscle; I10 Essential (primary) hypertension; M86.8X8 Other osteomyelitis, other site; E11.51 Type 2 diabetes mellitus with diabetic peripheral angiopathy without gangrene; Z79.85 Long-term (current) use of injectable non-insulin antidiabetic drugs | CPT/HCPCS: 97597; A9270 ==

== ENCOUNTER → 2024-12-31 | Outpatient (CLI) | payer MEDICARE, MEDICAID, SELFPAY | END | disposition home or self-care (01) | LOC: SWHD 08:35 | PROVIDERS: PCP Family Medicine; Referring Provider Family Medicine; Visit Provider Student in an Organized Health Care Education/Training Program | DX: E11.621 Type 2 diabetes mellitus with foot ulcer (principal); L97.512 Non-pressure chronic ulcer of other part of right foot with fat layer exposed; I10 Essential (primary) hypertension; M86.8X8 Other osteomyelitis, other site; E11.51 Type 2 diabetes mellitus with diabetic peripheral angiopathy without gangrene; Z79.85 Long-term (current) use of injectable non-insulin antidiabetic drugs | CPT/HCPCS: 97597; A9270 ==

== ENCOUNTER → 2025-01-14 | Outpatient (CLI) | payer MEDICARE, MEDICAID, SELFPAY | END | disposition home or self-care (01) | PROVIDERS: PCP Family Medicine; Referring Provider Family Medicine; Visit Provider Student in an Organized Health Care Education/Training Program | DX: E11.621 Type 2 diabetes mellitus with foot ulcer (principal); L97.512 Non-pressure chronic ulcer of other part of right foot with fat layer exposed; I10 Essential (primary) hypertension; M86.8X8 Other osteomyelitis, other site; E11.51 Type 2 diabetes mellitus with diabetic peripheral angiopathy without gangrene; Z79.85 Long-term (current) use of injectable non-insulin antidiabetic drugs | CPT/HCPCS: 97597; A9270 ==